=== PATIENT | male | born 1960 | race Two or more races ===

== ENCOUNTER 2021-02-06 09:28 | Inpatient (IN) | payer MEDICAID, OTHER ==
[~2021-02-06] VITALS: Ht 193 cm; Wt 132.7 kg
[2021-02-06] VITALS (34 sets, daily range): BP systolic 80–112; BP diastolic 31–74
[2021-02-06] MEDS ORDERED: DEXTROSE (50%) 50ML SYRG IV PRN ×2 (10:00→11:00)
[2021-02-06] MEDS ORDERED: InsuLIN R (HUMAN) 100 UNITS in SODIUM CHL 0.9% 99 ML IV SCH ×4 (10:00→20:15)
[2021-02-06] MEDS ORDERED: INSULIN LANTUS (GLARGINE) 1 /0.01ml (100units/ml) SC ONE (10:00)
[2021-02-06] MEDS: SODIUM CHLORIDE 0.9% 1,000 ML IV SCH ×4 (10:00→22:40)
[2021-02-06 10:18] LABS: Basophils # (auto) 0 10 ^3/uL (0-0.2); Basophils % (auto) 0.2 % (0.0-2.0); Eosinophils # (auto) 0 10 ^3/uL (0-0.8); Lymphocytes # (auto) 0.5 10 ^3/uL (0.4-5.4)
[2021-02-06 10:20] LABS: Hematocrit 50.3 % (41.0-53.0); Hemoglobin 14.7 g/dL (13.5-17.5); Lymphocytes % (auto) 3.6 % (10.0-50.0); Mean Corpuscular Hemoglobin 31.1 pg (28.0-32.0); Mean Corpuscular Hgb Conc. 29.1 g/dL (32.0-36.0); Mean Corpuscular Volume 106.8 fL (80.0-100.0); Monocytes # (auto) 0.9 10 ^3/uL (0-1.3); Monocytes % (auto) 6.2 % (0.0-12.0); Neutrophils # (auto) 12.4 10 ^3/uL (1.6-8.6); Platelet Count (auto) 278 10^3/uL (140-450); Red Blood Cells 4.71 10^6/uL (4.5-5.90); Red Cell Distribution Width 16.3 % (11.8-14.3); White Blood Cell 13.8 10^3/uL (4.4-10.8)
[2021-02-06] MEDS: ACCU-CHEK COMFORT CURVE STRIP VI SCH ×8 (10:30→23:00)
[2021-02-06] MEDS ORDERED: MIDAZOLAM HCL 5 MG/ML-1ML VIAL ONE (10:34)
[2021-02-06] MEDS ORDERED: ETOMIDATE (2MG/ML) 20ML VIAL IV ONE ×2 (10:34→10:45)
[2021-02-06] MEDS ORDERED: SUCCINYLCHOLINE CHLORIDE 20 MG/ML 10ML VIAL IV ONE ×2 (10:34→10:45)
[2021-02-06 10:36] LABS: Albumin 3.7 g/dL (3.4-5.0); Anion Gap 29 (5-15); Blood Urea Nitrogen 79 mg/dL (7-18); Calcium 9.3 mg/dL (8.5-10.1); Chloride 83 mmol/L (98-107); Sodium 121 mmol/L (136-145)
[2021-02-06] MEDS ORDERED: MIDAZOLAM DRIP 50 mg/50mL 50 ML IV ONE (10:36)
[2021-02-06 10:42] LABS: Urine Bacteria NONE SEEN /hpf (None Seen); Urine Blood 2+ /uL (Negative); Urine Specific Gravity 1.025 (1.001-1.035); Urine WBC 1 /hpf (0 - 3)
[2021-02-06 10:44] LABS: Alanine Aminotransferase 37 U/L (16-61); Alkaline Phosphatase 197 U/L (45-117); Aspartate Aminotransferase 32 U/L (15-37); BUN/Creatinine Ratio 15.4; Bilirubin, Total 0.5 mg/dL (0.2-1.0); GFR African American 15 mL/min; GFR Non-African American 12 mL/min; Total Protein 8.2 g/dL (6.4-8.2)
[2021-02-06] MEDS ORDERED: PIPERACILLIN-TAZOB 3.375GM 100 ML IV ONE (10:45)
[2021-02-06] MEDS ORDERED: SODIUM BICARB 50ML SYR 150 ML in SODIUM CHLORIDE 0.9% 1,000 ML IV ONE (10:45)
[2021-02-06 10:46] LABS: Carbon Dioxide 9 mmol/L (21-32); Glucose 1827 mg/dL (74-106); Magnesium 4.4 mg/dL (1.6-2.6); Potassium 7.5 mmol/L (3.5-5.1)
[2021-02-06] MEDS ORDERED: SODIUM ZIRCONIUM CYCL 10 GM PAK PO ONE ×2 (11:00→12:15)
[2021-02-06] MEDS ORDERED: InsuLIN REG 1unit/0.01ml Soln (100units/ml) IV ONE (11:00)
[2021-02-06] MEDS ORDERED: FUROSEMIDE 20 MG/2 ML VIAL IV ONE ×2 (11:00→12:15)
[2021-02-06] MEDS ORDERED: CALCIUM GLUC 1,000mg/50ml-NS 50 ML IV ONE (11:00)
[2021-02-06] MEDS ORDERED: fentaNYL Drip 2500mCg/250mlNS 250 ML IV ONE (11:01)
[2021-02-06 11:14] LABS: Alcohol, Urine < 3.0 mg/dL (0-10); Amphetamine Screen, Urine NEGATIVE (NEGATIVE); Barbiturate Scree,Urine NEGATIVE (NEGATIVE); Benzodiazephine Screen, Urine NEGATIVE (NEGATIVE); Cannabinoid Screen, Urine NEGATIVE (NEGATIVE); Cocaine Screen, Urine NEGATIVE (NEGATIVE); Opiate Scree,Urine NEGATIVE (NEGATIVE); Phencyclidine Screen, Urine NEGATIVE (NEGATIVE)
[2021-02-06] MEDS ORDERED: NOREPINEPHRINE 8 MG/250ML KIT 250 ML IV ONE (11:19)
[2021-02-06] MEDS ORDERED: MIDAZOLAM HCL 5 MG/ML-1ML VIAL IV ONE (12:30)
[2021-02-06] MEDS: fentaNYL Drip 2500mCg/250mlNS 250 ML IV SCH (12:42)
[2021-02-06] MEDS: NOREPINEPHRINE 8 MG/250ML KIT 250 ML IV SCH ×2 (12:45→22:10)
[2021-02-06] MEDS: MIDAZOLAM DRIP 50 mg/50mL 50 ML IV SCH ×3 (12:46→23:31)
[2021-02-06] MEDS ORDERED: SODIUM CHLORIDE 0.9% 1,000 ML IV SCH (14:00)
[2021-02-06] MEDS ORDERED: NITROGLYCERIN 0.4 MG SL TAB SL PRN (14:15)
[2021-02-06] MEDS ORDERED: MORPHINE SULF INJ 2 MG/ML SYRINGE 1ML IV PRN (14:15)
[2021-02-06] MEDS: SODIUM BICARB 50ML SYR 100 ML in SOD CHL 0.45% 1,000 ML IV SCH ×2 (15:23→21:38)
[2021-02-06 15:44] LABS: BUN/Creatinine Ratio 14.6; Calcium 8.5 mg/dL (8.5-10.1)
[2021-02-06 15:48] LABS: Potassium 5.6 mmol/L (3.5-5.1)
[2021-02-06] MEDS ORDERED: FAMO-12 PO (17:41)
[2021-02-06] MEDS ORDERED: METF-869 PO (17:41)
[2021-02-06] MEDS ORDERED: ATOR20TA50 PO (17:41)
[2021-02-06] MEDS ORDERED: FIN5T PO (17:41)
[2021-02-06] MEDS ORDERED: LISI40TA11 PO (17:41)
[2021-02-06] MEDS ORDERED: AMLO-489 PO (17:41)
[2021-02-06] MEDS ORDERED: ASPI-325 PO (17:41)
[2021-02-06] MEDS: ALBUTEROL SULF 2.5 MG/0.5ML(0.5%) NEB SOLN NEB SCH (18:15)
[2021-02-06] MEDS: InsuLIN R (HUMAN) 100 UNITS in SODIUM CHL 0.9% 99 ML IV SCH (18:15)
[2021-02-06] MEDS: PHENYLEPHRINE IV 250 ML IV SCH ×2 (18:50→23:24)
[2021-02-06] MEDS ORDERED: PHENYLEPHRINE IV 250 ML IV ONE (18:53)
[2021-02-06 19:00] LABS: BUN/Creatinine Ratio 14.1; Calcium 8.7 mg/dL (8.5-10.1); Potassium 5.4 mmol/L (3.5-5.1)
[2021-02-06] MEDS: VASOPRESSIN 50 UNITS in D5W 5% 247.5 ML IV SCH (19:00)
[2021-02-06] MEDS: ACETAMINOPHEN 325 MG TAB PO PRN (20:15)
[2021-02-06] MEDS: PIPERACILLIN-TAZOB 2.25GM 50 ML IV SCH (20:53)
[2021-02-06] MEDS ORDERED: InsuLIN REG 1unit/0.01ml Soln (100units/ml) SC ONE ×2 (21:45→22:00)
[2021-02-06 23:05] LABS: BUN/Creatinine Ratio 13.4; Calcium 9.1 mg/dL (8.5-10.1); Potassium 4.2 mmol/L (3.5-5.1)
[2021-02-06] MEDS: LINEZOLID 600MG/300ML 300 ML IV SCH (23:14)
[2021-02-07] VITALS (102 sets, daily range): BP systolic 87–149; BP diastolic 52–88
[2021-02-07] MEDS: ACCU-CHEK COMFORT CURVE STRIP VI SCH ×12 (00:30→20:07)
[2021-02-07 00:49] LABS: BUN/Creatinine Ratio 12.7; Calcium 9.2 mg/dL (8.5-10.1)
[2021-02-07] MEDS: ALBUTEROL SULF 2.5 MG/0.5ML(0.5%) NEB SOLN NEB SCH ×4 (00:59→18:19)
[2021-02-07] MEDS: PHENYLEPHRINE IV 250 ML IV SCH ×4 (02:06→20:00)
[2021-02-07] MEDS: fentaNYL Drip 2500mCg/250mlNS 250 ML IV SCH ×3 (02:07→16:00)
[2021-02-07] MEDS ORDERED: InsuLIN R (HUMAN) 100 UNITS in SODIUM CHL 0.9% 99 ML IV SCH (03:30)
[2021-02-07] MEDS: PIPERACILLIN-TAZOB 2.25GM 50 ML IV SCH ×3 (03:47→20:07)
[2021-02-07 04:11] LABS: Basophils # (auto) 0.1 10 ^3/uL (0-0.2); Basophils % (auto) 0.6 % (0.0-2.0); Eosinophils # (auto) 0.1 10 ^3/uL (0-0.8); Eosinophils % (auto) 0.4 % (0.0-7.0); Hemoglobin 14.3 g/dL (13.5-17.5); Lymphocytes # (auto) 1.8 10 ^3/uL (0.4-5.4); Lymphocytes % (auto) 12.7 % (10.0-50.0); Mean Corpuscular Hemoglobin 30.2 pg (28.0-32.0); Mean Corpuscular Hgb Conc. 33.3 g/dL (32.0-36.0); Mean Corpuscular Volume 90.6 fL (80.0-100.0); Monocytes # (auto) 1.7 10 ^3/uL (0-1.3); Monocytes % (auto) 12.4 % (0.0-12.0); Neutrophils # (auto) 10.3 10 ^3/uL (1.6-8.6); Neutrophils % (auto) 73.9 % (37.0-80.0); Nucleated Red Blood Cells % 0.1 %; Platelet Count (auto) 217 10^3/uL (140-450); Red Blood Cells 4.74 10^6/uL (4.5-5.90); Red Cell Distribution Width 14.3 % (11.8-14.3)
[2021-02-07 04:25] LABS: Calcium 8.9 mg/dL (8.5-10.1); Potassium 3.8 mmol/L (3.5-5.1)
[2021-02-07 04:32] LABS: BUN/Creatinine Ratio 12.9
[2021-02-07] MEDS: SODIUM CHLORIDE 0.9% 1,000 ML IV SCH (05:20)
[2021-02-07] MEDS ORDERED: SODIUM BICARBONATE 8.4 % INJ 50ML VIAL IV ONE (05:45)
[2021-02-07] MEDS: SODIUM BICARB 50ML SYR 100 ML in SOD CHL 0.45% 1,000 ML IV SCH (06:01)
[2021-02-07] MEDS ORDERED: SODIUM BICARBONATE 50ML VIAL 100 ML in D5W/SOD CHL 0.45% 1,000 ML IV SCH (08:15)
[2021-02-07] MEDS: InsuLIN R (HUMAN) 100 UNITS in SODIUM CHL 0.9% 99 ML IV SCH (08:30)
[2021-02-07] MEDS: MIDAZOLAM DRIP 50 mg/50mL 50 ML IV SCH ×4 (08:30→23:46)
[2021-02-07 08:33] LABS: BUN/Creatinine Ratio 14.1; Calcium 8.4 mg/dL (8.5-10.1); Potassium 3.8 mmol/L (3.5-5.1)
[2021-02-07] MEDS ORDERED: SOD CHL 0.45% 1,000 ML IV SCH (09:00)
[2021-02-07] MEDS: D5W/SOD CHL 0.45% 1,000 ML IV SCH ×2 (09:40→15:40)
[2021-02-07] MEDS ORDERED: ENOXAPARIN SOD 30 MG/0.3 ML SYRINGE SC SCH (10:00)
[2021-02-07] MEDS ORDERED: INSULIN LANTUS (GLARGINE) 1 /0.01ml (100units/ml) SC SCH (10:00)
[2021-02-07] MEDS: PANTOPRAZOLE 40 MG/10 ML VIAL INJ IV SCH (10:19)
[2021-02-07] MEDS: LINEZOLID 600MG/300ML 300 ML IV SCH ×2 (10:20→22:54)
[2021-02-07] MEDS: ENOXAPARIN SOD 40 MG/0.4 ML SYRINGE SC SCH (10:20)
[2021-02-07] MEDS: NOREPINEPHRINE 8 MG/250ML KIT 250 ML IV SCH ×2 (10:40→15:15)
[2021-02-07 11:00] LABS: Protein, Urine 316.3 mg/dL (0.0-11.9)
[2021-02-07] MEDS: InsuLIN REG 1unit/0.01ml Soln (100units/ml) SC SCH ×3 (12:17→20:08)
[2021-02-07 17:01] LABS: Calcium 7.3 mg/dL (8.5-10.1); Potassium 4.2 mmol/L (3.5-5.1)
[2021-02-07 17:10] LABS: BUN/Creatinine Ratio 14.9
[2021-02-07] MEDS: ACETAMINOPHEN 325 MG TAB PO PRN (17:30)
[2021-02-07] MEDS: SOD CHL 0.45% 1,000 ML IV SCH (17:30)
[2021-02-07] MEDS: VASOPRESSIN 50 UNITS in D5W 5% 247.5 ML IV SCH (18:40)
[2021-02-07] MEDS: INSULIN LANTUS (GLARGINE) 1 /0.01ml (100units/ml) SC SCH (21:17)
[2021-02-08] VITALS (103 sets, daily range): BP systolic 92–131; BP diastolic 57–79
[2021-02-08] MEDS: ALBUTEROL SULF 2.5 MG/0.5ML(0.5%) NEB SOLN NEB SCH ×4 (00:15→18:14)
[2021-02-08] MEDS: InsuLIN REG 1unit/0.01ml Soln (100units/ml) SC SCH ×7 (00:16→23:57)
[2021-02-08] MEDS: ACCU-CHEK COMFORT CURVE STRIP VI SCH ×7 (00:16→23:57)
[2021-02-08] MEDS: SOD CHL 0.45% 1,000 ML IV SCH ×4 (01:25→22:09)
[2021-02-08 03:42] LABS: Basophils # (auto) 0 10 ^3/uL (0-0.2); Basophils % (auto) 0.3 % (0.0-2.0); Eosinophils # (auto) 0.1 10 ^3/uL (0-0.8); Eosinophils % (auto) 1.1 % (0.0-7.0); Hematocrit 34.2 % (41.0-53.0); Hemoglobin 11.5 g/dL (13.5-17.5); Lymphocytes # (auto) 1.2 10 ^3/uL (0.4-5.4); Lymphocytes % (auto) 13.6 % (10.0-50.0); Mean Corpuscular Hemoglobin 30.8 pg (28.0-32.0); Mean Corpuscular Hgb Conc. 33.6 g/dL (32.0-36.0); Mean Corpuscular Volume 91.5 fL (80.0-100.0); Monocytes # (auto) 0.9 10 ^3/uL (0-1.3); Monocytes % (auto) 10.3 % (0.0-12.0); Neutrophils # (auto) 6.4 10 ^3/uL (1.6-8.6); Neutrophils % (auto) 74.7 % (37.0-80.0); Nucleated Red Blood Cells % 0.1 %; Platelet Count (auto) 115 10^3/uL (140-450); Red Blood Cells 3.74 10^6/uL (4.5-5.90); Red Cell Distribution Width 14.6 % (11.8-14.3); White Blood Cell 8.6 10^3/uL (4.4-10.8)
[2021-02-08 03:51] LABS: INR 1.06 (0.9-1.15); Partial Thromboplastin Time 24.1 sec (23.0-31.2)
[2021-02-08 03:53] LABS: Calcium 6.9 mg/dL (8.5-10.1); Potassium 3.6 mmol/L (3.5-5.1)
[2021-02-08 03:55] LABS: Albumin 2.3 g/dL (3.4-5.0)
[2021-02-08 03:59] LABS: Bilirubin, Direct 0.2 mg/dL (0-0.2); Bilirubin, Total 0.5 mg/dL (0.2-1.0); Total Protein 5.9 g/dL (6.4-8.2)
[2021-02-08 04:02] LABS: BUN/Creatinine Ratio 14.7
[2021-02-08] MEDS: PHENYLEPHRINE IV 250 ML IV SCH ×3 (04:20→21:00)
[2021-02-08] MEDS: PIPERACILLIN-TAZOB 2.25GM 50 ML IV SCH ×3 (04:52→20:13)
[2021-02-08] MEDS: MIDAZOLAM DRIP 50 mg/50mL 50 ML IV SCH ×2 (04:53→19:57)
[2021-02-08] MEDS: NOREPINEPHRINE 8 MG/250ML KIT 250 ML IV SCH ×3 (04:53→23:58)
[2021-02-08] MEDS ORDERED: DOPamine 1600MCG/ML D5W 250 ML IV SCH (10:00)
[2021-02-08] MEDS: ENOXAPARIN SOD 40 MG/0.4 ML SYRINGE SC SCH (10:26)
[2021-02-08] MEDS: LINEZOLID 600MG/300ML 300 ML IV SCH ×2 (10:26→22:09)
[2021-02-08] MEDS: PANTOPRAZOLE 40 MG/10 ML VIAL INJ IV SCH (10:26)
[2021-02-08] MEDS: INSULIN LANTUS (GLARGINE) 1 /0.01ml (100units/ml) SC SCH ×2 (10:27→22:10)
[2021-02-08 15:09] LABS: BUN/Creatinine Ratio 13.5; Potassium 3.3 mmol/L (3.5-5.1)
[2021-02-08] MEDS: DOPAMINE HCL IV SCH (16:22)
[2021-02-08] MEDS: SODIUM CHL 0.9% IV SCH (16:22)
[2021-02-08] MEDS: VASOPRESSIN 50 UNITS in D5W 5% 247.5 ML IV SCH (16:36)
[2021-02-08] MEDS: fentaNYL Drip 2500mCg/250mlNS 250 ML IV SCH (19:56)
[2021-02-09] VITALS (102 sets, daily range): BP systolic 92–123; BP diastolic 61–79
[2021-02-09] MEDS: ALBUTEROL SULF 2.5 MG/0.5ML(0.5%) NEB SOLN NEB SCH ×4 (00:12→18:30)
[2021-02-09] MEDS: MIDAZOLAM DRIP 50 mg/50mL 50 ML IV SCH (01:13)
[2021-02-09 03:54] LABS: Basophils # (auto) 0 10 ^3/uL (0-0.2); Basophils % (auto) 0.4 % (0.0-2.0); Eosinophils # (auto) 0.2 10 ^3/uL (0-0.8); Eosinophils % (auto) 1.7 % (0.0-7.0); Hematocrit 34.9 % (41.0-53.0); Hemoglobin 11.9 g/dL (13.5-17.5); Lymphocytes # (auto) 1.4 10 ^3/uL (0.4-5.4); Lymphocytes % (auto) 13.9 % (10.0-50.0); Mean Corpuscular Hemoglobin 31.2 pg (28.0-32.0); Mean Corpuscular Hgb Conc. 34.1 g/dL (32.0-36.0); Mean Corpuscular Volume 91.5 fL (80.0-100.0); Monocytes # (auto) 1.1 10 ^3/uL (0-1.3); Monocytes % (auto) 11.1 % (0.0-12.0); Neutrophils # (auto) 7.1 10 ^3/uL (1.6-8.6); Neutrophils % (auto) 72.9 % (37.0-80.0); Nucleated Red Blood Cells % 0.1 %; Platelet Count (auto) 107 10^3/uL (140-450); Red Blood Cells 3.81 10^6/uL (4.5-5.90); Red Cell Distribution Width 14.3 % (11.8-14.3); White Blood Cell 9.8 10^3/uL (4.4-10.8)
[2021-02-09] MEDS: SOD CHL 0.45% 1,000 ML IV SCH ×3 (04:05→17:50)
[2021-02-09] MEDS: PIPERACILLIN-TAZOB 2.25GM 50 ML IV SCH ×3 (04:07→20:35)
[2021-02-09] MEDS: InsuLIN REG 1unit/0.01ml Soln (100units/ml) SC SCH ×5 (04:08→20:37)
[2021-02-09 04:09] LABS: Potassium 3.6 mmol/L (3.5-5.1)
[2021-02-09] MEDS: ACCU-CHEK COMFORT CURVE STRIP VI SCH ×6 (04:09→23:57)
[2021-02-09 04:14] LABS: BUN/Creatinine Ratio 14.1; Calcium 7.5 mg/dL (8.5-10.1)
[2021-02-09] MEDS: PHENYLEPHRINE IV 250 ML IV SCH ×3 (05:20→22:00)
[2021-02-09] MEDS: PANTOPRAZOLE 40 MG/10 ML VIAL INJ IV SCH (10:36)
[2021-02-09] MEDS: LINEZOLID 600MG/300ML 300 ML IV SCH ×2 (10:36→22:26)
[2021-02-09] MEDS: INSULIN LANTUS (GLARGINE) 1 /0.01ml (100units/ml) SC SCH ×2 (10:37→22:31)
[2021-02-09] MEDS: ENOXAPARIN SOD 40 MG/0.4 ML SYRINGE SC SCH (10:37)
[2021-02-09] MEDS: SODIUM CHL 0.9% IV SCH (15:30)
[2021-02-09] MEDS: DOPAMINE HCL IV SCH (15:30)
[2021-02-09] MEDS: VASOPRESSIN 50 UNITS in D5W 5% 247.5 ML IV SCH (18:43)
[2021-02-10] VITALS (102 sets, daily range): BP systolic 102–155; BP diastolic 63–96
[2021-02-10] MEDS: InsuLIN REG 1unit/0.01ml Soln (100units/ml) SC SCH ×6 (00:02→20:32)
[2021-02-10] MEDS: SOD CHL 0.45% 1,000 ML IV SCH ×4 (00:12→19:39)
[2021-02-10] MEDS: ALBUTEROL SULF 2.5 MG/0.5ML(0.5%) NEB SOLN NEB SCH ×4 (00:33→18:29)
[2021-02-10] MEDS: ACCU-CHEK COMFORT CURVE STRIP VI SCH ×5 (04:21→20:12)
[2021-02-10] MEDS: PIPERACILLIN-TAZOB 2.25GM 50 ML IV SCH ×3 (04:21→20:11)
[2021-02-10 04:45] LABS: Basophils # (auto) 0 10 ^3/uL (0-0.2); Basophils % (auto) 0.2 % (0.0-2.0); Eosinophils # (auto) 0.2 10 ^3/uL (0-0.8); Eosinophils % (auto) 2.1 % (0.0-7.0); Hematocrit 33.9 % (41.0-53.0); Hemoglobin 11.3 g/dL (13.5-17.5); Lymphocytes # (auto) 1.3 10 ^3/uL (0.4-5.4); Lymphocytes % (auto) 14.6 % (10.0-50.0); Mean Corpuscular Hemoglobin 30.5 pg (28.0-32.0); Mean Corpuscular Hgb Conc. 33.3 g/dL (32.0-36.0); Mean Corpuscular Volume 91.8 fL (80.0-100.0); Monocytes % (auto) 11.1 % (0.0-12.0); Neutrophils # (auto) 6.5 10 ^3/uL (1.6-8.6); Nucleated Red Blood Cells % 0.1 %; Platelet Count (auto) 103 10^3/uL (140-450); Red Blood Cells 3.69 10^6/uL (4.5-5.90); Red Cell Distribution Width 14.4 % (11.8-14.3)
[2021-02-10 04:57] LABS: INR 0.97 (0.9-1.15); Partial Thromboplastin Time 23.6 sec (23.0-31.2)
[2021-02-10 05:00] LABS: Albumin 2.2 g/dL (3.4-5.0); Bilirubin, Direct 0.2 mg/dL (0-0.2); Magnesium 2.8 mg/dL (1.6-2.6); Potassium 3.6 mmol/L (3.5-5.1)
[2021-02-10 05:03] LABS: BUN/Creatinine Ratio 14.8; Bilirubin, Total 0.4 mg/dL (0.2-1.0); Total Protein 6.6 g/dL (6.4-8.2)
[2021-02-10] MEDS: PHENYLEPHRINE IV 250 ML IV SCH ×3 (06:20→23:00)
[2021-02-10] MEDS: PANTOPRAZOLE 40 MG/10 ML VIAL INJ IV SCH (09:59)
[2021-02-10] MEDS: LINEZOLID 600MG/300ML 300 ML IV SCH ×2 (10:00→22:25)
[2021-02-10] MEDS: ENOXAPARIN SOD 40 MG/0.4 ML SYRINGE SC SCH (10:00)
[2021-02-10] MEDS: INSULIN LANTUS (GLARGINE) 1 /0.01ml (100units/ml) SC SCH ×2 (10:02→22:16)
[2021-02-10] MEDS: fentaNYL Drip 2500mCg/250mlNS 250 ML IV SCH (12:30)
[2021-02-10] MEDS: MIDAZOLAM DRIP 50 mg/50mL 50 ML IV SCH (12:30)
[2021-02-10] MEDS: SODIUM CHL 0.9% IV SCH (15:30)
[2021-02-10] MEDS: DOPAMINE HCL IV SCH (15:30)
[2021-02-10] MEDS: NOREPINEPHRINE 8 MG/250ML KIT 250 ML IV SCH (15:30)
[2021-02-10] MEDS: VASOPRESSIN 50 UNITS in D5W 5% 247.5 ML IV SCH (17:07)
[2021-02-11] VITALS (105 sets, daily range): BP systolic 101–155; BP diastolic 52–97
[2021-02-11] MEDS: ACCU-CHEK COMFORT CURVE STRIP VI SCH ×7 (00:22→23:57)
[2021-02-11] MEDS: InsuLIN REG 1unit/0.01ml Soln (100units/ml) SC SCH ×7 (00:26→23:58)
[2021-02-11] MEDS: ALBUTEROL SULF 2.5 MG/0.5ML(0.5%) NEB SOLN NEB SCH ×4 (00:28→18:24)
[2021-02-11] MEDS: PIPERACILLIN-TAZOB 2.25GM 50 ML IV SCH ×3 (05:03→20:39)
[2021-02-11] MEDS: SOD CHL 0.45% 1,000 ML IV SCH ×3 (05:04→13:07)
[2021-02-11] MEDS ORDERED: SODIUM CHLORIDE 0.9 % NEB SOLN 3ML NEB ONE (05:50)
[2021-02-11 05:51] LABS: Basophils # (auto) 0 10 ^3/uL (0-0.2); Basophils % (auto) 0.3 % (0.0-2.0); Eosinophils # (auto) 0.1 10 ^3/uL (0-0.8); Eosinophils % (auto) 1.7 % (0.0-7.0); Hematocrit 31.2 % (41.0-53.0); Hemoglobin 10.7 g/dL (13.5-17.5); Lymphocytes # (auto) 1.4 10 ^3/uL (0.4-5.4); Lymphocytes % (auto) 18.8 % (10.0-50.0); Mean Corpuscular Hemoglobin 31.8 pg (28.0-32.0); Mean Corpuscular Hgb Conc. 34.4 g/dL (32.0-36.0); Mean Corpuscular Volume 92.4 fL (80.0-100.0); Monocytes % (auto) 13.6 % (0.0-12.0); Neutrophils # (auto) 4.8 10 ^3/uL (1.6-8.6); Neutrophils % (auto) 65.6 % (37.0-80.0); Nucleated Red Blood Cells % 0.1 %; Platelet Count (auto) 98 10^3/uL (140-450); Red Blood Cells 3.37 10^6/uL (4.5-5.90); Red Cell Distribution Width 14.7 % (11.8-14.3); White Blood Cell 7.3 10^3/uL (4.4-10.8)
[2021-02-11 06:06] LABS: INR 0.97 (0.9-1.15); Partial Thromboplastin Time 24.2 sec (23.0-31.2)
[2021-02-11 06:15] LABS: Potassium 3.9 mmol/L (3.5-5.1)
[2021-02-11 06:23] LABS: Albumin 2.1 g/dL (3.4-5.0); BUN/Creatinine Ratio 16.5; Bilirubin, Direct 0.1 mg/dL (0-0.2); Bilirubin, Total 0.4 mg/dL (0.2-1.0); Calcium 8.2 mg/dL (8.5-10.1); Magnesium 2.7 mg/dL (1.6-2.6); Total Protein 6.6 g/dL (6.4-8.2)
[2021-02-11] MEDS: PHENYLEPHRINE IV 250 ML IV SCH ×2 (07:20→15:40)
[2021-02-11] MEDS: PANTOPRAZOLE 40 MG/10 ML VIAL INJ IV SCH (10:34)
[2021-02-11] MEDS: LINEZOLID 600MG/300ML 300 ML IV SCH ×2 (10:35→22:26)
[2021-02-11] MEDS: ENOXAPARIN SOD 40 MG/0.4 ML SYRINGE SC SCH (10:35)
[2021-02-11] MEDS: INSULIN LANTUS (GLARGINE) 1 /0.01ml (100units/ml) SC SCH ×2 (10:38→22:20)
[2021-02-11] MEDS: MIDAZOLAM DRIP 50 mg/50mL 50 ML IV SCH (12:30)
[2021-02-11] MEDS: fentaNYL Drip 2500mCg/250mlNS 250 ML IV SCH (12:30)
[2021-02-11] MEDS: NOREPINEPHRINE 8 MG/250ML KIT 250 ML IV SCH (13:07)
[2021-02-11] MEDS ORDERED: Glucerna 1.2 Cal 1Liter BOTTLE GT SCH (18:15)
[2021-02-11] MEDS: VASOPRESSIN 50 UNITS in D5W 5% 247.5 ML IV SCH (19:00)
[2021-02-12] VITALS (85 sets, daily range): BP systolic 97–167; BP diastolic 51–102
[2021-02-12] MEDS: ALBUTEROL SULF 2.5 MG/0.5ML(0.5%) NEB SOLN NEB SCH ×4 (00:07→18:14)
[2021-02-12] MEDS: SOD CHL 0.45% 1,000 ML IV SCH ×4 (01:27→18:53)
[2021-02-12] MEDS: ACCU-CHEK COMFORT CURVE STRIP VI SCH ×6 (03:26→23:48)
[2021-02-12] MEDS: InsuLIN REG 1unit/0.01ml Soln (100units/ml) SC SCH ×6 (03:32→23:49)
[2021-02-12] MEDS: PIPERACILLIN-TAZOB 2.25GM 50 ML IV SCH ×3 (03:35→19:52)
[2021-02-12 03:48] LABS: Basophils # (auto) 0 10 ^3/uL (0-0.2); Basophils % (auto) 0.3 % (0.0-2.0); Eosinophils # (auto) 0.1 10 ^3/uL (0-0.8); Eosinophils % (auto) 1.8 % (0.0-7.0); Hematocrit 30.7 % (41.0-53.0); Hemoglobin 10.2 g/dL (13.5-17.5); Lymphocytes # (auto) 1.1 10 ^3/uL (0.4-5.4); Lymphocytes % (auto) 17.6 % (10.0-50.0); Mean Corpuscular Hemoglobin 30.9 pg (28.0-32.0); Mean Corpuscular Hgb Conc. 33.1 g/dL (32.0-36.0); Mean Corpuscular Volume 93.3 fL (80.0-100.0); Monocytes # (auto) 0.9 10 ^3/uL (0-1.3); Monocytes % (auto) 15.2 % (0.0-12.0); Neutrophils % (auto) 65.1 % (37.0-80.0); Nucleated Red Blood Cells % 0.1 %; Platelet Count (auto) 114 10^3/uL (140-450); Red Blood Cells 3.29 10^6/uL (4.5-5.90); Red Cell Distribution Width 14.5 % (11.8-14.3); White Blood Cell 6.2 10^3/uL (4.4-10.8)
[2021-02-12 04:09] LABS: BUN/Creatinine Ratio 15.6; Calcium 8.5 mg/dL (8.5-10.1); Potassium 3.8 mmol/L (3.5-5.1)
[2021-02-12] MEDS: PHENYLEPHRINE IV 250 ML IV SCH ×3 (08:20→16:40)
[2021-02-12] MEDS: PANTOPRAZOLE 40 MG/10 ML VIAL INJ IV SCH (10:28)
[2021-02-12] MEDS: LINEZOLID 600MG/300ML 300 ML IV SCH ×2 (10:28→22:07)
[2021-02-12] MEDS: INSULIN LANTUS (GLARGINE) 1 /0.01ml (100units/ml) SC SCH ×2 (10:29→22:05)
[2021-02-12] MEDS: ENOXAPARIN SOD 40 MG/0.4 ML SYRINGE SC SCH (10:29)
[2021-02-12] MEDS ORDERED: INSULIN LANTUS (GLARGINE) 1 /0.01ml (100units/ml) SC ONE (11:30)
[2021-02-12] MEDS: fentaNYL Drip 2500mCg/250mlNS 250 ML IV SCH (12:30)
[2021-02-12] MEDS: MIDAZOLAM DRIP 50 mg/50mL 50 ML IV SCH (12:30)
[2021-02-12] MEDS: NOREPINEPHRINE 8 MG/250ML KIT 250 ML IV SCH (15:30)
[2021-02-12] MEDS: VASOPRESSIN 50 UNITS in D5W 5% 247.5 ML IV SCH (19:00)
[2021-02-13] VITALS (28 sets, daily range): BP systolic 97–139; BP diastolic 45–84
[2021-02-13] MEDS: ALBUTEROL SULF 2.5 MG/0.5ML(0.5%) NEB SOLN NEB SCH ×4 (00:10→19:14)
[2021-02-13] MEDS: PHENYLEPHRINE IV 250 ML IV SCH (01:00)
[2021-02-13] MEDS: SOD CHL 0.45% 1,000 ML IV SCH ×4 (02:39→23:03)
[2021-02-13] MEDS: ACCU-CHEK COMFORT CURVE STRIP VI SCH ×6 (04:03→22:47)
[2021-02-13] MEDS: PIPERACILLIN-TAZOB 2.25GM 50 ML IV SCH ×3 (04:03→20:27)
[2021-02-13] MEDS: InsuLIN REG 1unit/0.01ml Soln (100units/ml) SC SCH ×6 (04:05→22:59)
[2021-02-13 04:43] LABS: Basophils # (auto) 0 10 ^3/uL (0-0.2); Basophils % (auto) 0.5 % (0.0-2.0); Eosinophils # (auto) 0.1 10 ^3/uL (0-0.8); Eosinophils % (auto) 1.6 % (0.0-7.0); Hematocrit 30.8 % (41.0-53.0); Hemoglobin 10.2 g/dL (13.5-17.5); Lymphocytes # (auto) 1.2 10 ^3/uL (0.4-5.4); Lymphocytes % (auto) 18.6 % (10.0-50.0); Mean Corpuscular Hemoglobin 31.7 pg (28.0-32.0); Mean Corpuscular Hgb Conc. 33.1 g/dL (32.0-36.0); Mean Corpuscular Volume 95.7 fL (80.0-100.0); Monocytes % (auto) 15.6 % (0.0-12.0); Neutrophils # (auto) 4.2 10 ^3/uL (1.6-8.6); Neutrophils % (auto) 63.7 % (37.0-80.0); Nucleated Red Blood Cells % 0.1 %; Platelet Count (auto) 133 10^3/uL (140-450); Red Blood Cells 3.22 10^6/uL (4.5-5.90); White Blood Cell 6.7 10^3/uL (4.4-10.8)
[2021-02-13 05:05] LABS: Calcium 8.7 mg/dL (8.5-10.1); Potassium 3.3 mmol/L (3.5-5.1)
[2021-02-13 05:08] LABS: BUN/Creatinine Ratio 17.1
[2021-02-13] MEDS: PANTOPRAZOLE 40 MG/10 ML VIAL INJ IV SCH (10:25)
[2021-02-13] MEDS: ENOXAPARIN SOD 40 MG/0.4 ML SYRINGE SC SCH (10:25)
[2021-02-13] MEDS: INSULIN LANTUS (GLARGINE) 1 /0.01ml (100units/ml) SC SCH ×2 (10:26→22:59)
[2021-02-13] MEDS: LINEZOLID 600MG/300ML 300 ML IV SCH ×2 (10:27→22:36)
[2021-02-13] MEDS: ACETAMINOPHEN 325 MG TAB PO PRN (10:45)
[2021-02-13] MEDS: FREE WATER GT SCH ×2 (13:00→14:00)
[2021-02-14] MEDS: ALBUTEROL SULF 2.5 MG/0.5ML(0.5%) NEB SOLN NEB SCH ×4 (00:27→18:18)
[2021-02-14] MEDS: ACCU-CHEK COMFORT CURVE STRIP VI SCH ×6 (04:00→23:27)
[2021-02-14] MEDS: PIPERACILLIN-TAZOB 2.25GM 50 ML IV SCH ×3 (04:55→21:19)
[2021-02-14 05:00] VITALS: BP 124/74
[2021-02-14] MEDS: InsuLIN REG 1unit/0.01ml Soln (100units/ml) SC SCH ×6 (05:09→23:38)
[2021-02-14] MEDS: INSULIN LANTUS (GLARGINE) 1 /0.01ml (100units/ml) SC SCH ×2 (08:57→21:45)
[2021-02-14] MEDS: PANTOPRAZOLE 40 MG/10 ML VIAL INJ IV SCH (08:59)
[2021-02-14] MEDS: SOD CHL 0.45% 1,000 ML IV SCH ×2 (08:59→18:53)
[2021-02-14 09:00] VITALS: BP 147/82
[2021-02-14] MEDS: LINEZOLID 600MG/300ML 300 ML IV SCH ×2 (09:00→23:27)
[2021-02-14] MEDS: ENOXAPARIN SOD 40 MG/0.4 ML SYRINGE SC SCH (09:00)
[2021-02-14 10:06] LABS: Basophils # (auto) 0 10 ^3/uL (0-0.2); Basophils % (auto) 0.5 % (0.0-2.0); Eosinophils # (auto) 0.1 10 ^3/uL (0-0.8); Hemoglobin 10.6 g/dL (13.5-17.5); Lymphocytes # (auto) 1.6 10 ^3/uL (0.4-5.4); Lymphocytes % (auto) 19.9 % (10.0-50.0); Mean Corpuscular Hemoglobin 31.1 pg (28.0-32.0); Mean Corpuscular Hgb Conc. 33.2 g/dL (32.0-36.0); Mean Corpuscular Volume 93.7 fL (80.0-100.0); Monocytes % (auto) 12.7 % (0.0-12.0); Neutrophils # (auto) 5.3 10 ^3/uL (1.6-8.6); Neutrophils % (auto) 65.9 % (37.0-80.0); Platelet Count (auto) 148 10^3/uL (140-450); Red Blood Cells 3.42 10^6/uL (4.5-5.90); Red Cell Distribution Width 14.2 % (11.8-14.3); White Blood Cell 8.1 10^3/uL (4.4-10.8)
[2021-02-14 10:28] LABS: BUN/Creatinine Ratio 16.4; Calcium 8.2 mg/dL (8.5-10.1)
[2021-02-14 10:32] LABS: Potassium 2.8 mmol/L (3.5-5.1)
[2021-02-14] MEDS ORDERED: POTASSIUM CHL 20 Meq TABLET PO ONE ×2 (11:30→19:30)
[2021-02-14] MEDS: POTASSIUM CHL 20MEQ/100ML 100 ML IV SCH ×2 (12:12→14:04)
[2021-02-14 13:00] VITALS: BP 148/87
[2021-02-14] MEDS ORDERED: POTASSIUM EFFERVESENT TAB 25 MEQ PO ONE (16:15)
[2021-02-14 16:21] LABS: Albumin 2.3 g/dL (3.4-5.0); Calcium 8.5 mg/dL (8.5-10.1)
[2021-02-14 16:25] LABS: BUN/Creatinine Ratio 14.8; Bilirubin, Total 0.3 mg/dL (0.2-1.0)
[2021-02-14 16:37] VITALS: BP 154/105
[2021-02-14 16:59] VITALS: BP 154/105
[2021-02-14 22:00] VITALS: BP 152/80
[2021-02-15] MEDS: ALBUTEROL SULF 2.5 MG/0.5ML(0.5%) NEB SOLN NEB SCH ×3 (00:13→11:51)
[2021-02-15] MEDS: ACCU-CHEK COMFORT CURVE STRIP VI SCH ×3 (03:48→11:45)
[2021-02-15] MEDS: PIPERACILLIN-TAZOB 2.25GM 50 ML IV SCH ×2 (03:48→11:44)
[2021-02-15] MEDS: InsuLIN REG 1unit/0.01ml Soln (100units/ml) SC SCH ×3 (03:56→11:45)
[2021-02-15] MEDS: SOD CHL 0.45% 1,000 ML IV SCH (04:10)
[2021-02-15 05:00] VITALS: BP 158/91
[2021-02-15 05:13] LABS: Basophils # (auto) 0 10 ^3/uL (0-0.2); Basophils % (auto) 0.4 % (0.0-2.0); Eosinophils # (auto) 0.1 10 ^3/uL (0-0.8); Eosinophils % (auto) 1.3 % (0.0-7.0); Hematocrit 30.9 % (41.0-53.0); Hemoglobin 10.5 g/dL (13.5-17.5); Lymphocytes # (auto) 2.3 10 ^3/uL (0.4-5.4); Lymphocytes % (auto) 23.4 % (10.0-50.0); Mean Corpuscular Hemoglobin 30.9 pg (28.0-32.0); Mean Corpuscular Hgb Conc. 33.8 g/dL (32.0-36.0); Mean Corpuscular Volume 91.3 fL (80.0-100.0); Monocytes % (auto) 9.9 % (0.0-12.0); Neutrophils # (auto) 6.3 10 ^3/uL (1.6-8.6); Nucleated Red Blood Cells % 0.1 %; Platelet Count (auto) 184 10^3/uL (140-450); Red Blood Cells 3.39 10^6/uL (4.5-5.90); Red Cell Distribution Width 13.9 % (11.8-14.3); White Blood Cell 9.7 10^3/uL (4.4-10.8)
[2021-02-15 05:32] LABS: Calcium 8.3 mg/dL (8.5-10.1)
[2021-02-15 05:35] LABS: BUN/Creatinine Ratio 14.1
[2021-02-15 09:00] VITALS: BP 146/87
[2021-02-15] MEDS: LINEZOLID 600MG/300ML 300 ML IV SCH (09:17)
[2021-02-15] MEDS: PANTOPRAZOLE 40 MG/10 ML VIAL INJ IV SCH (09:17)
[2021-02-15] MEDS: ENOXAPARIN SOD 40 MG/0.4 ML SYRINGE SC SCH (09:18)
[2021-02-15] MEDS: INSULIN LANTUS (GLARGINE) 1 /0.01ml (100units/ml) SC SCH (09:21)
[2021-02-15 13:00] VITALS: BP 130/74
== END 2021-02-15 14:45 | DRG 720 ==
LOC: EDBD 09:28 → ER 09:28 → PACU ICU 14:04 → ICU WEST 15:35 → CENTRAL 02-13 12:45 → TELE-CENTR 02-13 14:27
PROVIDERS: ADMIT Internal Medicine; ATTEND Internal Medicine
PROC: 5A1955Z Respiratory Ventilation, Greater than 96 Consecutive Hours (ICD-10-PCS; principal; 2021-02-06)
PROC: 0BH17EZ Insertion of Endotracheal Airway into Trachea, Via Natural or Artificial Opening (ICD-10-PCS; 2021-02-06)
PROC: 02HV33Z Insertion of Infusion Device into Superior Vena Cava, Percutaneous Approach (ICD-10-PCS; 2021-02-06)
PROC: 0D9670Z Drainage of Stomach with Drainage Device, Via Natural or Artificial Opening (ICD-10-PCS; 2021-02-06)
DX: A41.9 Sepsis, unspecified organism (principal); J96.01 Acute respiratory failure with hypoxia; E11.11 Type 2 diabetes mellitus with ketoacidosis with coma; N17.0 Acute kidney failure with tubular necrosis; R65.21 Severe sepsis with septic shock; G92 Toxic encephalopathy; J15.212 Pneumonia due to Methicillin resistant Staphylococcus aureus; N18.30 Chronic kidney disease, stage 3 unspecified; Z20.822 Contact with and (suspected) exposure to COVID-19; E87.0 Hyperosmolality and hypernatremia; E87.5 Hyperkalemia; E66.01 Morbid (severe) obesity due to excess calories; E86.0 Dehydration; J98.11 Atelectasis; K21.9 Gastro-esophageal reflux disease without esophagitis; N40.0 Benign prostatic hyperplasia without lower urinary tract symptoms; E11.22 Type 2 diabetes mellitus with diabetic chronic kidney disease; E78.5 Hyperlipidemia, unspecified; Z96.659 Presence of unspecified artificial knee joint; G47.33 Obstructive sleep apnea (adult) (pediatric); I12.9 Hypertensive chronic kidney disease with stage 1 through stage 4 chronic kidney disease, or unspecified chronic kidney disease; Z68.35 Body mass index [BMI] 35.0-35.9, adult; Z79.4 Long term (current) use of insulin; Z82.3 Family history of stroke; Z82.49 Family history of ischemic heart disease and other diseases of the circulatory system; Z83.3 Family history of diabetes mellitus
CPT/HCPCS: 31500; 36415; 36556; 36600; 70450; 71045; 76775; 80048; 80053; 80076; 80307; 81001; 82010; 82570; 82805; 82962; 83036; 83735; 83880; 84156; 84300; 84484; 85025; 85610; 85730; 87040; 87070; 87077; 87081; 87086; 87186; 87205; 87426; 92610; 93005; 94002; 94003; 94640; 96365; 96367; 96375; 97110; 97116; 97163; 97530; 99291; C9113; G0378; J0330; J1265; J1815; J2250; J2543; J3480; J7060

== ENCOUNTER 2021-02-16 14:21 | Inpatient (IN) | payer MEDICAID ==
[~2021-02-16] VITALS: Ht 190.5 cm; Wt 131.2 kg
[~2021-02-16 14:21] MED LIST: ACETYLCYSTEINE ORAL for CIN 20%(200MG/ML) 4ML PO SCH; AMLO-489 PO; ASPI-325 PO; ATOR20TA50 PO; FAMO-12 PO; FIN5T PO; LISI40TA11 PO; METF-869 PO
[2021-02-16] MEDS ORDERED: SODIUM CHLORIDE 0.9% 1,000 ML IV ONE (14:45)
[2021-02-16] MEDS ORDERED: levoFLOXacin 750MG 150 ML IV ONE (15:00)
[2021-02-16 15:10] LABS: Basophils # (auto) 0 10 ^3/uL (0-0.2); Basophils % (auto) 0.2 % (0.0-2.0); Eosinophils # (auto) 0.1 10 ^3/uL (0-0.8); Eosinophils % (auto) 0.8 % (0.0-7.0); Hematocrit 35.8 % (41.0-53.0); Hemoglobin 11.9 g/dL (13.5-17.5); Lymphocytes # (auto) 2.6 10 ^3/uL (0.4-5.4); Lymphocytes % (auto) 19.5 % (10.0-50.0); Mean Corpuscular Hemoglobin 30.4 pg (28.0-32.0); Mean Corpuscular Hgb Conc. 33.2 g/dL (32.0-36.0); Mean Corpuscular Volume 91.6 fL (80.0-100.0); Monocytes # (auto) 0.7 10 ^3/uL (0-1.3); Monocytes % (auto) 5.5 % (0.0-12.0); Neutrophils # (auto) 9.9 10 ^3/uL (1.6-8.6); Nucleated Red Blood Cells % 0.2 %; Platelet Count (auto) 223 10^3/uL (140-450); Red Blood Cells 3.91 10^6/uL (4.5-5.90); White Blood Cell 13.4 10^3/uL (4.4-10.8)
[2021-02-16 15:21] LABS: Albumin 2.6 g/dL (3.4-5.0); BUN/Creatinine Ratio 12.1; Calcium 8.3 mg/dL (8.5-10.1)
[2021-02-16 15:24] LABS: Lactic Acid w/Reflex 2.1 mmol/L (0.4-2.0)
[2021-02-16 15:26] LABS: Bilirubin, Total 0.3 mg/dL (0.2-1.0); Total Protein 7.4 g/dL (6.4-8.2)
[2021-02-16 15:29] LABS: Potassium 2.9 mmol/L (3.5-5.1)
[2021-02-16] MEDS: POTASSIUM CHL 20MEQ/100ML 100 ML IV SCH ×2 (16:15→20:11)
[2021-02-16] MEDS ORDERED: MORPHINE SULF INJ 2 MG/ML SYRINGE 1ML IV PRN (18:15)
[2021-02-16] MEDS ORDERED: HYDROcodone-ACET 5/325MG TAB PO PRN (18:15)
[2021-02-16 18:57] LABS: Urine Bacteria FEW /hpf (None Seen); Urine Blood 1+ /uL (Negative); Urine Hyaline Cast FEW /lpf (0 - 2); Urine Specific Gravity 1.016 (1.001-1.035); Urine WBC 11 /hpf (0 - 3)
[2021-02-16 22:00] VITALS: BP 170/113
[2021-02-16] MEDS: LINEZOLID 600MG/300ML 300 ML IV SCH (22:46)
[2021-02-16] MEDS: ENOXAPARIN SOD 40 MG/0.4 ML SYRINGE SC SCH (22:46)
[2021-02-16] MEDS: hydrALAZINE HCL 20 MG/ML VL IV SCH (23:17)
[2021-02-17] VITALS: BP 156/99
[2021-02-17 04:00] VITALS: BP 155/99
[2021-02-17 05:31] LABS: Basophils # (auto) 0 10 ^3/uL (0-0.2); Basophils % (auto) 0.3 % (0.0-2.0); Eosinophils # (auto) 0.1 10 ^3/uL (0-0.8); Eosinophils % (auto) 0.7 % (0.0-7.0); Hematocrit 39.1 % (41.0-53.0); Hemoglobin 12.6 g/dL (13.5-17.5); Lymphocytes # (auto) 2.2 10 ^3/uL (0.4-5.4); Mean Corpuscular Hemoglobin 31.1 pg (28.0-32.0); Mean Corpuscular Hgb Conc. 32.3 g/dL (32.0-36.0); Mean Corpuscular Volume 96.3 fL (80.0-100.0); Monocytes # (auto) 0.8 10 ^3/uL (0-1.3); Monocytes % (auto) 6.3 % (0.0-12.0); Neutrophils # (auto) 9.8 10 ^3/uL (1.6-8.6); Neutrophils % (auto) 75.7 % (37.0-80.0); Nucleated Red Blood Cells % 0.5 %; Platelet Count (auto) 195 10^3/uL (140-450); Red Blood Cells 4.06 10^6/uL (4.5-5.90); Red Cell Distribution Width 14.7 % (11.8-14.3); White Blood Cell 12.9 10^3/uL (4.4-10.8)
[2021-02-17 05:48] LABS: Lactic Acid w/Reflex 2.6 mmol/L (0.4-2.0)
[2021-02-17 05:57] LABS: Potassium 3.3 mmol/L (3.5-5.1)
[2021-02-17] MEDS: hydrALAZINE HCL 20 MG/ML VL IV SCH (06:00)
[2021-02-17 06:10] LABS: Albumin 2.3 g/dL (3.4-5.0); BUN/Creatinine Ratio 15.2; Bilirubin, Total 0.4 mg/dL (0.2-1.0); Total Protein 7.3 g/dL (6.4-8.2)
[2021-02-17] MEDS ORDERED: hydrALAZINE HCL 20 MG/ML VL IV PRN (06:30)
[2021-02-17 07:50] VITALS: BP 150/90
[2021-02-17] MEDS: LINEZOLID 600MG/300ML 300 ML IV SCH (10:18)
[2021-02-17] MEDS: ENOXAPARIN SOD 40 MG/0.4 ML SYRINGE SC SCH (10:18)
[2021-02-17] MEDS ORDERED: DEXTROSE (50%) 50ML SYRG IV PRN ×2 (10:45→12:05)
[2021-02-17] MEDS ORDERED: POTASSIUM CHL 20 Meq TABLET PO ONE (10:45)
[2021-02-17] MEDS ORDERED: ACCU-CHEK COMFORT CURVE STRIP VI SCH (11:30)
[2021-02-17] MEDS ORDERED: InsuLIN REG 1unit/0.01ml Soln (100units/ml) SC SCH (11:30)
[2021-02-17 11:40] VITALS: BP 157/91
[2021-02-17] MEDS ORDERED: SOD CHL 0.45% 1,000 ML IV SCH (12:00)
[2021-02-17] MEDS: ACCU-CHEK COMFORT CURVE STRIP VI SCH ×3 (12:13→20:00)
[2021-02-17] MEDS: InsuLIN REG 1unit/0.01ml Soln (100units/ml) SC SCH ×3 (12:15→21:19)
[2021-02-17 14:42] LABS: Creatinine, Urine 56 mg/dL (30.0-125.0); Protein, Urine 33.7 mg/dL (0.0-11.9); Sodium Urine 60 mmol/L (40-220)
[2021-02-17] MEDS: ASPirin 81 mg TAB PO SCH (16:05)
[2021-02-17] MEDS: SODIUM BICARBONATE 50ML VIAL 50 ML in SOD CHL 0.45% WITH 20MEQ KCL 1,000 ML IV SCH (16:05)
[2021-02-17] MEDS: METOPROLOL TARTRATE 25 MG TAB PO SCH (16:06)
[2021-02-17 20:00] VITALS: BP 159/105
[2021-02-18] VITALS (12 sets, daily range): BP systolic 132–177; BP diastolic 43–110
[2021-02-18] MEDS: METOPROLOL TARTRATE 25 MG TAB PO SCH ×3 (00:09→21:36)
[2021-02-18] MEDS: ACCU-CHEK COMFORT CURVE STRIP VI SCH ×6 (00:09→20:00)
[2021-02-18] MEDS: LINEZOLID 600MG/300ML 300 ML IV SCH ×3 (00:09→21:37)
[2021-02-18] MEDS: InsuLIN REG 1unit/0.01ml Soln (100units/ml) SC SCH ×7 (00:31→23:59)
[2021-02-18] MEDS ORDERED: SODIUM BICARBONATE 8.4 % INJ 50ML VIAL IV ONE (00:59)
[2021-02-18] MEDS: SODIUM BICARBONATE 50ML VIAL 50 ML in SOD CHL 0.45% WITH 20MEQ KCL 1,000 ML IV SCH (02:46)
[2021-02-18 04:50] LABS: Basophils # (auto) 0.1 10 ^3/uL (0-0.2); Basophils % (auto) 0.5 % (0.0-2.0); Eosinophils # (auto) 0.2 10 ^3/uL (0-0.8); Eosinophils % (auto) 2.2 % (0.0-7.0); Hematocrit 37.3 % (41.0-53.0); Hemoglobin 11.8 g/dL (13.5-17.5); Lymphocytes # (auto) 1.9 10 ^3/uL (0.4-5.4); Lymphocytes % (auto) 18.6 % (10.0-50.0); Mean Corpuscular Hgb Conc. 31.6 g/dL (32.0-36.0); Mean Corpuscular Volume 98.1 fL (80.0-100.0); Monocytes # (auto) 0.9 10 ^3/uL (0-1.3); Monocytes % (auto) 8.8 % (0.0-12.0); Neutrophils # (auto) 7.2 10 ^3/uL (1.6-8.6); Neutrophils % (auto) 69.9 % (37.0-80.0); Nucleated Red Blood Cells % 0.5 %; Platelet Count (auto) 199 10^3/uL (140-450); White Blood Cell 10.3 10^3/uL (4.4-10.8)
[2021-02-18] MEDS ORDERED: REGADENOSON 0.4 MG/5 ML SYRG IV ONE (09:00)
[2021-02-18 09:41] LABS: Calcium 8.4 mg/dL (8.5-10.1); Magnesium 2.1 mg/dL (1.6-2.6); Potassium 3.1 mmol/L (3.5-5.1)
[2021-02-18 09:44] LABS: BUN/Creatinine Ratio 13.6; Phosphorus 2.6 mg/dL (2.5-4.90)
[2021-02-18] MEDS: ASPirin 81 mg TAB PO SCH (10:35)
[2021-02-18] MEDS: ENOXAPARIN SOD 40 MG/0.4 ML SYRINGE SC SCH (10:42)
[2021-02-18] MEDS: SOD CHL 0.45% WITH 20MEQ KCL 1,000 ML IV SCH ×2 (13:46→21:37)
[2021-02-18] MEDS ORDERED: POTASSIUM CHLORIDE 40 MEQ, LIDOCAINE 1% (LOCAL ANESTH.) 4 ML in SODIUM CHL 0.9% 250 ML IV ONE (14:15)
[2021-02-18] MEDS: ONDANSETRON HCL 4 MG/2 ML VIAL IV PRN (15:55)
[2021-02-19] VITALS (9 sets, daily range): BP systolic 143–163; BP diastolic 88–107
[2021-02-19] MEDS: ACCU-CHEK COMFORT CURVE STRIP VI SCH ×6 (00:03→21:22)
[2021-02-19] MEDS: InsuLIN REG 1unit/0.01ml Soln (100units/ml) SC SCH ×5 (04:55→21:24)
[2021-02-19] MEDS: SOD CHL 0.45% WITH 20MEQ KCL 1,000 ML IV SCH ×4 (06:13→19:26)
[2021-02-19 07:02] LABS: Basophils # (auto) 0 10 ^3/uL (0-0.2); Basophils % (auto) 0.6 % (0.0-2.0); Eosinophils # (auto) 0.2 10 ^3/uL (0-0.8); Eosinophils % (auto) 2.6 % (0.0-7.0); Hemoglobin 11.4 g/dL (13.5-17.5); Lymphocytes # (auto) 2.1 10 ^3/uL (0.4-5.4); Lymphocytes % (auto) 27.2 % (10.0-50.0); Mean Corpuscular Hemoglobin 31.2 pg (28.0-32.0); Mean Corpuscular Hgb Conc. 33.6 g/dL (32.0-36.0); Monocytes # (auto) 0.6 10 ^3/uL (0-1.3); Monocytes % (auto) 7.8 % (0.0-12.0); Neutrophils # (auto) 4.9 10 ^3/uL (1.6-8.6); Neutrophils % (auto) 61.8 % (37.0-80.0); Nucleated Red Blood Cells % 0.1 %; Platelet Count (auto) 242 10^3/uL (140-450); Red Blood Cells 3.65 10^6/uL (4.5-5.90); Red Cell Distribution Width 14.3 % (11.8-14.3); White Blood Cell 7.9 10^3/uL (4.4-10.8)
[2021-02-19 07:21] LABS: BUN/Creatinine Ratio 11.6; Magnesium 2.1 mg/dL (1.6-2.6); Potassium 3.5 mmol/L (3.5-5.1)
[2021-02-19] MEDS: ACETAMINOPHEN 325 MG TAB PO PRN (08:18)
[2021-02-19] MEDS: LINEZOLID 600MG/300ML 300 ML IV SCH ×2 (09:37→21:22)
[2021-02-19] MEDS: ENOXAPARIN SOD 40 MG/0.4 ML SYRINGE SC SCH (09:37)
[2021-02-19] MEDS: METOPROLOL TARTRATE 25 MG TAB PO SCH ×2 (09:49→21:22)
[2021-02-19] MEDS: ASPirin 81 mg TAB PO SCH (09:49)
[2021-02-19] MEDS ORDERED: ACETYLCYSTEINE ORAL for CIN 20%(200MG/ML) 4ML PO ONE (16:30)
[2021-02-19] MEDS: ATORVASTATIN 20 MG TAB PO SCH (21:21)
[2021-02-20] VITALS (7 sets, daily range): BP systolic 115–160; BP diastolic 67–105
[2021-02-20] MEDS: InsuLIN REG 1unit/0.01ml Soln (100units/ml) SC SCH ×5 (00:05→16:00)
[2021-02-20] MEDS: ACCU-CHEK COMFORT CURVE STRIP VI SCH ×5 (00:06→16:00)
[2021-02-20] MEDS: SOD CHL 0.45% WITH 20MEQ KCL 1,000 ML IV SCH ×4 (04:21→20:36)
[2021-02-20] MEDS: hydrALAZINE HCL 20 MG/ML VL IV PRN ×2 (04:22→11:23)
[2021-02-20 08:14] LABS: Basophils # (auto) 0 10 ^3/uL (0-0.2); Basophils % (auto) 0.5 % (0.0-2.0); Eosinophils # (auto) 0.2 10 ^3/uL (0-0.8); Eosinophils % (auto) 2.8 % (0.0-7.0); Hematocrit 30.7 % (41.0-53.0); Hemoglobin 10.7 g/dL (13.5-17.5); Lymphocytes # (auto) 2.2 10 ^3/uL (0.4-5.4); Lymphocytes % (auto) 33.7 % (10.0-50.0); Mean Corpuscular Hemoglobin 31.6 pg (28.0-32.0); Mean Corpuscular Hgb Conc. 34.7 g/dL (32.0-36.0); Mean Corpuscular Volume 91.1 fL (80.0-100.0); Monocytes # (auto) 0.5 10 ^3/uL (0-1.3); Monocytes % (auto) 7.1 % (0.0-12.0); Neutrophils # (auto) 3.7 10 ^3/uL (1.6-8.6); Neutrophils % (auto) 55.9 % (37.0-80.0); Nucleated Red Blood Cells % 0.2 %; Platelet Count (auto) 229 10^3/uL (140-450); Red Blood Cells 3.38 10^6/uL (4.5-5.90); Red Cell Distribution Width 14.1 % (11.8-14.3); White Blood Cell 6.6 10^3/uL (4.4-10.8)
[2021-02-20] MEDS: ACETAMINOPHEN 325 MG TAB PO PRN (08:20)
[2021-02-20 08:27] LABS: BUN/Creatinine Ratio 10.2; Calcium 7.9 mg/dL (8.5-10.1); Potassium 3.1 mmol/L (3.5-5.1)
[2021-02-20 09:03] LABS: INR 1.06 (0.9-1.15); Partial Thromboplastin Time 25.4 sec (23.0-31.2)
[2021-02-20] MEDS ORDERED: POTASSIUM EFFERVESENT TAB 25 MEQ PO ONE (09:30)
[2021-02-20] MEDS: ENOXAPARIN SOD 40 MG/0.4 ML SYRINGE SC SCH (10:00)
[2021-02-20] MEDS: ACETYLCYSTEINE ORAL for CIN 20%(200MG/ML) 4ML PO SCH (10:03)
[2021-02-20] MEDS: LINEZOLID 600MG/300ML 300 ML IV SCH ×2 (10:05→22:00)
[2021-02-20] MEDS: METOPROLOL TARTRATE 25 MG TAB PO SCH (10:05)
[2021-02-20] MEDS: ASPirin 81 mg TAB PO SCH (10:05)
[2021-02-20] MEDS ORDERED: LIDOCAINE 2%HCL (LOCAL ANESTH.) INJ 20ML MDV ONE (12:49)
[2021-02-20] MEDS ORDERED: IOHEXOL 350 MG/ML 100ML IJ ONE (12:50)
[2021-02-20] MEDS ORDERED: HEPARIN SODIUM (PORCINE) 5000 UNITS/ML 1ML VIAL ONE (12:55)
[2021-02-20] MEDS ORDERED: ANGIOMAX 250 MG VIAL IV ONE (12:55)
[2021-02-20] MEDS ORDERED: SODIUM CHL 0.9% 0 ML ONE (12:56)
[2021-02-20] MEDS ORDERED: fentaNYL CITRATE 100 MCG/2 ML VL ONE (12:56)
[2021-02-20] MEDS ORDERED: MIDAZOLAM HCL 1MG/1ML-2 ML VIAL ONE (12:56)
[2021-02-20] MEDS ORDERED: VERAPAMIL 2.5MG/ML INJ 2ML VIAL IV ONE (12:56)
[2021-02-20] MEDS ORDERED: IODIXANOL 320MG/ML 100ML BTL IV ONE (13:09)
[2021-02-20] MEDS ORDERED: DEXTROSE (50%) 50ML SYRG IV PRN (17:30)
[2021-02-20] MEDS: ONDANSETRON HCL 4 MG/2 ML VIAL IV PRN (20:35)
[2021-02-21] VITALS (8 sets, daily range): BP systolic 112–148; BP diastolic 69–90
[2021-02-21] MEDS: ACETYLCYSTEINE ORAL for CIN 20%(200MG/ML) 4ML PO SCH ×3 (01:21→22:13)
[2021-02-21] MEDS: ACCU-CHEK COMFORT CURVE STRIP VI SCH ×5 (01:21→23:50)
[2021-02-21] MEDS: ATORVASTATIN 20 MG TAB PO SCH ×2 (01:21→22:12)
[2021-02-21] MEDS: METOPROLOL TARTRATE 25 MG TAB PO SCH ×3 (01:21→22:18)
[2021-02-21] MEDS: InsuLIN REG 1unit/0.01ml Soln (100units/ml) SC SCH ×5 (01:25→23:55)
[2021-02-21] MEDS: SOD CHL 0.45% WITH 20MEQ KCL 1,000 ML IV SCH ×3 (05:21→22:33)
[2021-02-21 09:15] LABS: Basophils # (auto) 0 10 ^3/uL (0-0.2); Basophils % (auto) 0.5 % (0.0-2.0); Eosinophils # (auto) 0.1 10 ^3/uL (0-0.8); Eosinophils % (auto) 2.5 % (0.0-7.0); Hematocrit 36.4 % (41.0-53.0); Hemoglobin 11.8 g/dL (13.5-17.5); Lymphocytes # (auto) 2.3 10 ^3/uL (0.4-5.4); Lymphocytes % (auto) 37.4 % (10.0-50.0); Mean Corpuscular Hgb Conc. 32.4 g/dL (32.0-36.0); Mean Corpuscular Volume 95.9 fL (80.0-100.0); Monocytes # (auto) 0.5 10 ^3/uL (0-1.3); Monocytes % (auto) 7.5 % (0.0-12.0); Neutrophils # (auto) 3.2 10 ^3/uL (1.6-8.6); Neutrophils % (auto) 52.1 % (37.0-80.0); Nucleated Red Blood Cells % 0.1 %; Platelet Count (auto) 190 10^3/uL (140-450); Red Cell Distribution Width 14.6 % (11.8-14.3); White Blood Cell 6.1 10^3/uL (4.4-10.8)
[2021-02-21 09:34] LABS: Albumin 2.3 g/dL (3.4-5.0); Calcium 7.7 mg/dL (8.5-10.1); Potassium 3.5 mmol/L (3.5-5.1)
[2021-02-21 09:37] LABS: BUN/Creatinine Ratio 8.4; Bilirubin, Total 0.4 mg/dL (0.2-1.0); Total Protein 6.8 g/dL (6.4-8.2)
[2021-02-21] MEDS: ENOXAPARIN SOD 40 MG/0.4 ML SYRINGE SC SCH (10:09)
[2021-02-21] MEDS: ASPirin 81 mg TAB PO SCH (10:09)
[2021-02-21] MEDS: LINEZOLID 600MG/300ML 300 ML IV SCH ×2 (10:12→22:34)
[2021-02-22 05:08] VITALS: BP 135/88
[2021-02-22] MEDS: SOD CHL 0.45% WITH 20MEQ KCL 1,000 ML IV SCH ×4 (05:15→23:50)
[2021-02-22] MEDS: ACCU-CHEK COMFORT CURVE STRIP VI SCH ×3 (06:12→18:33)
[2021-02-22 06:14] LABS: Basophils # (auto) 0 10 ^3/uL (0-0.2); Basophils % (auto) 0.7 % (0.0-2.0); Eosinophils # (auto) 0.1 10 ^3/uL (0-0.8); Eosinophils % (auto) 2.9 % (0.0-7.0); Hematocrit 28.1 % (41.0-53.0); Hemoglobin 9.7 g/dL (13.5-17.5); Lymphocytes % (auto) 40.1 % (10.0-50.0); Mean Corpuscular Hemoglobin 32.1 pg (28.0-32.0); Mean Corpuscular Hgb Conc. 34.7 g/dL (32.0-36.0); Mean Corpuscular Volume 92.7 fL (80.0-100.0); Monocytes # (auto) 0.5 10 ^3/uL (0-1.3); Monocytes % (auto) 10.2 % (0.0-12.0); Neutrophils # (auto) 2.3 10 ^3/uL (1.6-8.6); Neutrophils % (auto) 46.1 % (37.0-80.0); Nucleated Red Blood Cells % 0.2 %; Platelet Count (auto) 220 10^3/uL (140-450); Red Blood Cells 3.03 10^6/uL (4.5-5.90); Red Cell Distribution Width 14.3 % (11.8-14.3); White Blood Cell 4.9 10^3/uL (4.4-10.8)
[2021-02-22] MEDS: InsuLIN REG 1unit/0.01ml Soln (100units/ml) SC SCH ×3 (06:14→18:36)
[2021-02-22 06:28] LABS: BUN/Creatinine Ratio 7.1; Calcium 7.4 mg/dL (8.5-10.1); Potassium 3.9 mmol/L (3.5-5.1)
[2021-02-22 09:22] VITALS: BP 146/98
[2021-02-22] MEDS: ASPirin 81 mg TAB PO SCH (09:53)
[2021-02-22] MEDS: METOPROLOL TARTRATE 25 MG TAB PO SCH ×2 (09:53→22:08)
[2021-02-22] MEDS: ENOXAPARIN SOD 40 MG/0.4 ML SYRINGE SC SCH (09:54)
[2021-02-22] MEDS: LINEZOLID 600MG/300ML 300 ML IV SCH ×2 (09:54→22:07)
[2021-02-22 12:53] VITALS: BP 140/88
[2021-02-22 16:59] VITALS: BP 136/88
[2021-02-22 22:00] VITALS: BP 137/94
[2021-02-22] MEDS: ATORVASTATIN 20 MG TAB PO SCH (22:07)
[2021-02-23] MEDS: ACCU-CHEK COMFORT CURVE STRIP VI SCH ×3 (00:19→12:00)
[2021-02-23] MEDS: InsuLIN REG 1unit/0.01ml Soln (100units/ml) SC SCH ×3 (00:20→13:36)
[2021-02-23 05:00] VITALS: BP 133/87
[2021-02-23 08:00] VITALS: BP 133/93
[2021-02-23 09:00] VITALS: BP 135/92
[2021-02-23] MEDS: ASPirin 81 mg TAB PO SCH (10:57)
[2021-02-23] MEDS: METOPROLOL TARTRATE 25 MG TAB PO SCH (10:57)
[2021-02-23] MEDS: LINEZOLID 600MG/300ML 300 ML IV SCH (10:57)
[2021-02-23] MEDS: ENOXAPARIN SOD 40 MG/0.4 ML SYRINGE SC SCH (10:57)
[2021-02-23 12:46] LABS: BUN/Creatinine Ratio 6.4; Calcium 8.1 mg/dL (8.5-10.1)
[2021-02-23 13:00] VITALS: BP 143/87
[2021-02-23 14:56] VITALS: BP 143/87
== END 2021-02-23 16:01 | disposition home health service (06) | DRG 190 ==
LOC: ER 14:21 → EDBD 14:21 → TELE 18:01 → DOU IN ICU 20:53 → TELE-CENTR 02-21 21:45
PROVIDERS: ADMIT Internal Medicine; ATTEND Internal Medicine
PROC: 4A023N7 Measurement of Cardiac Sampling and Pressure, Left Heart, Percutaneous Approach (ICD-10-PCS; principal; 2021-02-20)
PROC: B215YZZ Fluoroscopy of Left Heart using Other Contrast (ICD-10-PCS; 2021-02-20)
PROC: B211YZZ Fluoroscopy of Multiple Coronary Arteries using Other Contrast (ICD-10-PCS; 2021-02-20)
DX: I21.4 Non-ST elevation (NSTEMI) myocardial infarction (principal); J96.21 Acute and chronic respiratory failure with hypoxia; N17.0 Acute kidney failure with tubular necrosis; J15.212 Pneumonia due to Methicillin resistant Staphylococcus aureus; E11.65 Type 2 diabetes mellitus with hyperglycemia; E11.22 Type 2 diabetes mellitus with diabetic chronic kidney disease; N18.32 Chronic kidney disease, stage 3b; E86.0 Dehydration; E87.2 Acidosis; E87.0 Hyperosmolality and hypernatremia; E87.6 Hypokalemia; J98.11 Atelectasis; E66.01 Morbid (severe) obesity due to excess calories; Z68.35 Body mass index [BMI] 35.0-35.9, adult; Z20.822 Contact with and (suspected) exposure to COVID-19; Z88.0 Allergy status to penicillin; E78.5 Hyperlipidemia, unspecified; E88.09 Other disorders of plasma-protein metabolism, not elsewhere classified; I12.9 Hypertensive chronic kidney disease with stage 1 through stage 4 chronic kidney disease, or unspecified chronic kidney disease; I25.10 Atherosclerotic heart disease of native coronary artery without angina pectoris; N40.0 Benign prostatic hyperplasia without lower urinary tract symptoms; Z78.9 Other specified health status; Z79.4 Long term (current) use of insulin; Z82.49 Family history of ischemic heart disease and other diseases of the circulatory system; Z82.61 Family history of arthritis
CPT/HCPCS: 36415; 36600; 71045; 71250; 78452; 80048; 80053; 80061; 81001; 82570; 82805; 82962; 83605; 83735; 83880; 84100; 84156; 84300; 84484; 84550; 85025; 85610; 85730; 86141; 86850; 86900; 86901; 87040; 87081; 87426; 93005; 93017; 93306; 96361; 96365; 99152; 99291; G0378; J1815; J1956; J2001; J2250; J2405; J3480; Q9967

== ENCOUNTER 2024-04-23 14:17 | Inpatient (IN) | payer MEDICAID ==
[~2024-04-23] VITALS: Ht 180.3 cm; Wt 136.5 kg
[~2024-04-23 14:17] MED LIST changes: -ACETYLCYSTEINE ORAL for CIN 20%(200MG/ML) 4ML PO SCH; -AMLO-489 PO; +AMLO1TAB22 PO; -LISI40TA11 PO
[2024-04-23] MEDS: SODIUM CHLORIDE 0.9% 1,000 ML IV ONE ×2 (15:00→15:26)
[2024-04-23 16:02] LABS: Basophils # (auto) 0 10 ^3/uL (0-0.2); Basophils % (auto) 0.4 % (0.0-2.0); Eosinophils # (auto) 0 10 ^3/uL (0-0.8); Eosinophils % (auto) 0.4 % (0.0-7.0); Hematocrit 43.2 % (41.0-53.0); Hemoglobin 14.9 g/dL (13.5-17.5); Lymphocytes # (auto) 1.2 10 ^3/uL (0.4-5.4); Lymphocytes % (auto) 14.6 % (10.0-50.0); Mean Corpuscular Hemoglobin 31.6 pg (28.0-32.0); Mean Corpuscular Hgb Conc. 34.5 g/dL (32.0-36.0); Mean Corpuscular Volume 91.9 fL (80.0-100.0); Monocytes # (auto) 0.5 10 ^3/uL (0-1.3); Monocytes % (auto) 6.6 % (0.0-12.0); Neutrophils # (auto) 6.3 10 ^3/uL (1.6-8.6); Nucleated Red Blood Cells % 0.1 %; Red Cell Distribution Width 13.9 % (11.8-14.3)
[2024-04-23 16:15] LABS: Chloride 112 mmol/L (98-107); Potassium 3.7 mmol/L (3.5-5.1); Sodium 145 mmol/L (136-145)
[2024-04-23] MEDS: SILVER SULFADIAZINE 1 % TOPICAL CREAM 50GM TOP ONE (16:15)
[2024-04-23 16:16] LABS: Anion Gap 17 (5-15); Carbon Dioxide 16 mmol/L (20-30)
[2024-04-23 16:17] LABS: Calcium 9.7 mg/dL (8.7-10.4)
[2024-04-23 16:21] LABS: Glucose 127 mg/dL (74-106)
[2024-04-23 16:22] LABS: BUN/Creatinine Ratio 6.3 (10.0-20.0); Blood Urea Nitrogen 14 mg/dL (9-23)
[2024-04-23] MEDS: MORPHINE SULFATE 4 MG/ML SYR/VIAL IV ONE (17:29)
[2024-04-23] MEDS: ONDANSETRON HCL 4 MG/2 ML VIAL IV ONE (17:30)
[2024-04-23 18:20] VITALS: PULSE 80; RESP 20; O2SAT 96
[2024-04-23 18:38] LABS: Urine Bacteria None Seen /hpf (None Seen)
[2024-04-23 19:03] LABS: Urine Blood 2+ /uL (Negative); Urine Clarity Clear (Clear); Urine Color Light-Yellow (Yellow); Urine Hyaline Cast FEW /lpf (0 - 2); Urine Mucus FEW (None Seen); Urine Protein, UAD 1+ (Negative); Urine Specific Gravity 1.014 (1.001-1.035); Urine Urobilinogen Normal (Negative); Urine WBC 2 /hpf (0 - 3)
[2024-04-23] MEDS ORDERED: DEXTROSE (50%) 50ML SYRG IV PRN (19:15)
[2024-04-23] MEDS ORDERED: DOCUSATE SOD 100 MG CAP PO PRN (19:15)
[2024-04-23] MEDS: CLINDAMYCIN 300MG IV 50 ML IV ONE (19:53)
[2024-04-23 19:56] LABS: Phosphorus 1.4 mg/dL (2.4-5.1)
[2024-04-23] MEDS: ONDANSETRON HCL 4 MG/2 ML VIAL IV PRN (19:59)
[2024-04-23] MEDS: ENOXAPARIN SOD 40 MG/0.4 ML SYRINGE SC SCH (19:59)
[2024-04-23] MEDS: MORPHINE SULFATE INJ 2 MG/ml SYRG IV ONE (19:59)
[2024-04-23 20:00] VITALS: PULSE 83; RESP 16; O2SAT 100
[2024-04-23] MEDS: TETANUS-DIPTH-ACEL PERTUSSIS 0.5ML SYR Tdap IM ONE (20:01)
[2024-04-23] MEDS: SODIUM CHLORIDE 0.9% 1,000 ML IV SCH (20:02)
[2024-04-23 20:12] LABS: Magnesium 2.1 mg/dL (1.6-2.6)
[2024-04-23] MEDS: NITROGLYCERIN 0.4 MG SL TAB SL PRN (20:40)
[2024-04-23] MEDS: InsuLIN REG 1unit/0.01ml Soln (100units/ml) SC SCH (22:00)
[2024-04-23] MEDS: ACCU-CHEK COMFORT CURVE STRIP VI SCH (22:00)
[2024-04-24] MEDS: cloNIDine HCL 0.1 MG TAB PO ONE (00:33)
[2024-04-24] MEDS: CLINDAMYCIN 300MG IV 50 ML IV SCH (05:05)
[2024-04-24 07:39] LABS: Basophils # (auto) 0.1 10 ^3/uL (0-0.2); Basophils % (auto) 0.7 % (0.0-2.0); Eosinophils # (auto) 0 10 ^3/uL (0-0.8); Eosinophils % (auto) 0.5 % (0.0-7.0); Hematocrit 43.8 % (41.0-53.0); Lymphocytes # (auto) 2.6 10 ^3/uL (0.4-5.4); Lymphocytes % (auto) 33.7 % (10.0-50.0); Mean Corpuscular Hemoglobin 31.5 pg (28.0-32.0); Mean Corpuscular Hgb Conc. 34.3 g/dL (32.0-36.0); Mean Corpuscular Volume 91.9 fL (80.0-100.0); Monocytes # (auto) 0.8 10 ^3/uL (0-1.3); Neutrophils # (auto) 4.2 10 ^3/uL (1.6-8.6); Neutrophils % (auto) 54.1 % (37.0-80.0); Nucleated Red Blood Cells % 0.2 %; Red Blood Cells 4.77 10^6/uL (4.5-5.90); Red Cell Distribution Width 14.3 % (11.8-14.3); White Blood Cell 7.7 10^3/uL (4.4-10.8)
[2024-04-24 07:55] LABS: Alanine Aminotransferase 28 U/L (7-40); Albumin 3.9 g/dL (3.2-4.8); Alkaline Phosphatase 92 U/L (46-116); Anion Gap 12 (5-15); Aspartate Aminotransferase 52 U/L (13-40); BUN/Creatinine Ratio 7.1 (10.0-20.0); Blood Urea Nitrogen 12 mg/dL (9-23); Calcium 8.5 mg/dL (8.7-10.4); Carbon Dioxide 20 mmol/L (20-30); Chloride 109 mmol/L (98-107); Glucose 107 mg/dL (74-106); Potassium 3.6 mmol/L (3.5-5.1); Sodium 141 mmol/L (136-145)
[2024-04-24 07:56] LABS: Bilirubin, Total 0.7 mg/dL (0.2-1.0); Total Protein 6.4 g/dL (5.7-8.2)
[2024-04-24 09:00] VITALS: PULSE 71; RESP 15; O2SAT 98
[2024-04-24] MEDS ORDERED: ATEN50TA PO (13:40)
[2024-04-24] MEDS ORDERED: AMLO1TAB22 PO (13:40)
[2024-04-24] MEDS ORDERED: FURO20TA3 PO (13:40)
[2024-04-24] MEDS ORDERED: ASPI-543 PO (13:40)
[2024-04-24] MEDS ORDERED: BUPR-346 PO (13:40)
[2024-04-24] MEDS ORDERED: ARIP20TA4 PO (13:40)
[2024-04-24] MEDS ORDERED: QUET100T47 PO (13:40)
[2024-04-24] MEDS ORDERED: DONE1TAB88 PO (13:40)
[2024-04-24] MEDS: SODIUM CHLORIDE 0.9% 1,000 ML IV SCH ×2 (13:44→20:43)
[2024-04-24 15:59] LABS: Creatinine, Urine 209.34 mg/dL (30.0-125.0)
[2024-04-24 16:52] VITALS: BP 154/105; PULSE 72; RESP 19; TEMP 98.5; O2SAT 99
[2024-04-24] MEDS ORDERED: METF-929 PO (17:11)
[2024-04-24] MEDS: amLODIPine BESYLATE 5 MG TAB PO ONE (18:38)
[2024-04-24 20:00] VITALS: PULSE 76; PULSE 78; RESP 18; O2SAT 98
[2024-04-24] MEDS: PANTOPRAZOLE 40 MG/10 ML VIAL INJ IV ONE (20:40)
[2024-04-24 21:00] VITALS: BP 172/110; PULSE 73; RESP 18; TEMP 99.2; O2SAT 98
[2024-04-24] MEDS: hydrALAZINE HCL 20 MG/ML VL IV PRN (22:41)
[2024-04-25] VITALS (9 sets, daily range): BP systolic 138–169; BP diastolic 72–106; PULSE 87–99; RESP 17–20; TEMP 97.7–98.3; O2SAT 92–100
[2024-04-25 07:36] LABS: Chloride 111 mmol/L (98-107); Potassium 3.6 mmol/L (3.5-5.1); Sodium 142 mmol/L (136-145)
[2024-04-25 07:37] LABS: Anion Gap 11 (5-15); Calcium 8.5 mg/dL (8.7-10.4); Carbon Dioxide 20 mmol/L (20-30)
[2024-04-25 07:40] LABS: Basophils # (auto) 0 10 ^3/uL (0-0.2); Basophils % (auto) 0.4 % (0.0-2.0); Eosinophils # (auto) 0.1 10 ^3/uL (0-0.8); Eosinophils % (auto) 1.1 % (0.0-7.0); Hematocrit 45.2 % (41.0-53.0); Hemoglobin 15.6 g/dL (13.5-17.5); Lymphocytes # (auto) 2.4 10 ^3/uL (0.4-5.4); Lymphocytes % (auto) 29.8 % (10.0-50.0); Mean Corpuscular Hemoglobin 31.9 pg (28.0-32.0); Mean Corpuscular Hgb Conc. 34.5 g/dL (32.0-36.0); Mean Corpuscular Volume 92.4 fL (80.0-100.0); Monocytes # (auto) 0.9 10 ^3/uL (0-1.3); Monocytes % (auto) 10.5 % (0.0-12.0); Neutrophils # (auto) 4.7 10 ^3/uL (1.6-8.6); Neutrophils % (auto) 58.2 % (37.0-80.0); Nucleated Red Blood Cells % 0.4 %; Red Blood Cells 4.89 10^6/uL (4.5-5.90); Red Cell Distribution Width 13.9 % (11.8-14.3); White Blood Cell 8.1 10^3/uL (4.4-10.8)
[2024-04-25 07:42] LABS: BUN/Creatinine Ratio 5.6 (10.0-20.0); Blood Urea Nitrogen 9 mg/dL (9-23); Glucose 114 mg/dL (74-106)
[2024-04-25] MEDS: SILVER SULFADIAZINE 1 % TOPICAL CREAM 50GM TOP SCH (10:00)
[2024-04-25] MEDS: PANTOPRAZOLE 40 MG/10 ML VIAL INJ IV SCH (10:14)
[2024-04-25] MEDS: amLODIPine BESYLATE 5 MG TAB PO SCH (10:14)
[2024-04-25] MEDS: ATENOLOL 25 MG TAB PO SCH (10:15)
[2024-04-25] MEDS ORDERED: SEMA1INJ2 SC (11:39)
[2024-04-25] MEDS ORDERED: ECON1CRE6 TOP (11:43)
[2024-04-25] MEDS ORDERED: TRAZ-228 PO (11:43)
[2024-04-25] MEDS ORDERED: HYDR-4798 PO (11:43)
[2024-04-25] MEDS ORDERED: POLYPOW59 PO (11:43)
[2024-04-25] MEDS ORDERED: HYDR25TA88 PO (11:43)
[2024-04-25] MEDS: MORPHINE SULFATE INJ 2 MG/ml SYRG IV PRN (13:06)
[2024-04-25] MEDS ORDERED: HYDROmorphone HCL 2 MG/ML VL/or syr IV PRN (14:30)
[2024-04-25] MEDS: hydrALAZINE HCL 20 MG/ML VL IV ONE (15:05)
[2024-04-25] MEDS: SODIUM CHLORIDE 0.9% 1,000 ML IV SCH (15:05)
[2024-04-26] VITALS (9 sets, daily range): BP systolic 136–198; BP diastolic 73–83; PULSE 56–89; RESP 16–20; TEMP 97.5–101; O2SAT 94–97
[2024-04-26 08:43] LABS: Basophils # (auto) 0 10 ^3/uL (0-0.2); Basophils % (auto) 0.4 % (0.0-2.0); Eosinophils # (auto) 0.1 10 ^3/uL (0-0.8); Eosinophils % (auto) 1.2 % (0.0-7.0); Hematocrit 45.5 % (41.0-53.0); Hemoglobin 15.4 g/dL (13.5-17.5); Lymphocytes # (auto) 2.9 10 ^3/uL (0.4-5.4); Lymphocytes % (auto) 33.2 % (10.0-50.0); Mean Corpuscular Hemoglobin 31.3 pg (28.0-32.0); Mean Corpuscular Hgb Conc. 33.8 g/dL (32.0-36.0); Mean Corpuscular Volume 92.5 fL (80.0-100.0); Monocytes % (auto) 11.1 % (0.0-12.0); Neutrophils # (auto) 4.7 10 ^3/uL (1.6-8.6); Neutrophils % (auto) 54.1 % (37.0-80.0); Nucleated Red Blood Cells % 0.2 %; Red Blood Cells 4.91 10^6/uL (4.5-5.90); Red Cell Distribution Width 14.1 % (11.8-14.3); White Blood Cell 8.6 10^3/uL (4.4-10.8)
[2024-04-26 09:21] LABS: Alanine Aminotransferase 26 U/L (7-40); Albumin 3.3 g/dL (3.2-4.8); Alkaline Phosphatase 78 U/L (46-116); Anion Gap 8 (5-15); Aspartate Aminotransferase 75 U/L (13-40); BUN/Creatinine Ratio 9.4 (10.0-20.0); Bilirubin, Total 0.7 mg/dL (0.2-1.0); Blood Urea Nitrogen 15 mg/dL (9-23); Calcium 8.7 mg/dL (8.7-10.4); Carbon Dioxide 21 mmol/L (20-30); Chloride 110 mmol/L (98-107); Glucose 111 mg/dL (74-106); Potassium 4.2 mmol/L (3.5-5.1); Sodium 139 mmol/L (136-145)
[2024-04-26 09:22] LABS: Total Protein 5.2 g/dL (5.7-8.2)
[2024-04-26 15:28] LABS: Chloride 110 mmol/L (98-107); Potassium 3.6 mmol/L (3.5-5.1); Sodium 136 mmol/L (136-145)
[2024-04-26 15:29] LABS: Anion Gap 7 (5-15); Carbon Dioxide 19 mmol/L (20-30)
[2024-04-26 15:30] LABS: Calcium 8.3 mg/dL (8.7-10.4)
[2024-04-26 15:34] LABS: BUN/Creatinine Ratio 6.1 (10.0-20.0); Blood Urea Nitrogen 10 mg/dL (9-23); Glucose 119 mg/dL (74-106)
[2024-04-27] VITALS (8 sets, daily range): BP systolic 127–147; BP diastolic 52–85; PULSE 72–82; RESP 17–20; TEMP 98–99.4; O2SAT 93–98
[2024-04-27 07:36] LABS: Basophils # (auto) 0 10 ^3/uL (0-0.2); Basophils % (auto) 0.7 % (0.0-2.0); Eosinophils # (auto) 0.2 10 ^3/uL (0-0.8); Eosinophils % (auto) 2.2 % (0.0-7.0); Hematocrit 38.4 % (41.0-53.0); Hemoglobin 13.6 g/dL (13.5-17.5); Lymphocytes # (auto) 2.6 10 ^3/uL (0.4-5.4); Lymphocytes % (auto) 37.8 % (10.0-50.0); Mean Corpuscular Hemoglobin 32.5 pg (28.0-32.0); Mean Corpuscular Hgb Conc. 35.5 g/dL (32.0-36.0); Mean Corpuscular Volume 91.5 fL (80.0-100.0); Monocytes # (auto) 0.7 10 ^3/uL (0-1.3); Monocytes % (auto) 10.5 % (0.0-12.0); Neutrophils # (auto) 3.4 10 ^3/uL (1.6-8.6); Neutrophils % (auto) 48.8 % (37.0-80.0); Nucleated Red Blood Cells % 0.1 %; Red Blood Cells 4.19 10^6/uL (4.5-5.90); White Blood Cell 6.9 10^3/uL (4.4-10.8)
[2024-04-27 07:52] LABS: Alanine Aminotransferase 23 U/L (7-40); Alkaline Phosphatase 69 U/L (46-116); Anion Gap 8 (5-15); Aspartate Aminotransferase 65 U/L (13-40); BUN/Creatinine Ratio 8.5 (10.0-20.0); Bilirubin, Total 0.6 mg/dL (0.2-1.0); Blood Urea Nitrogen 13 mg/dL (9-23); Carbon Dioxide 20 mmol/L (20-30); Chloride 110 mmol/L (98-107); Glucose 98 mg/dL (74-106); Potassium 3.5 mmol/L (3.5-5.1); Sodium 138 mmol/L (136-145); Total Protein 4.9 g/dL (5.7-8.2)
[2024-04-27 08:04] LABS: Creatine Kinase IFCC 2453 U/L (46-171)
[2024-04-27] MEDS: SODIUM CHLORIDE 0.9% 1,000 ML IV SCH (08:30)
[2024-04-27] MEDS: cefTRIAXone 1GM/50ML D5W 50 ML IV SCH (09:13)
[2024-04-28] VITALS (7 sets, daily range): BP systolic 137–160; BP diastolic 58–80; PULSE 66–82; RESP 19–20; TEMP 98–99.2; O2SAT 94–98
[2024-04-28 06:03] LABS: Basophils # (auto) 0 10 ^3/uL (0-0.2); Basophils % (auto) 0.8 % (0.0-2.0); Eosinophils # (auto) 0.1 10 ^3/uL (0-0.8); Eosinophils % (auto) 1.6 % (0.0-7.0); Hematocrit 38.6 % (41.0-53.0); Hemoglobin 13.6 g/dL (13.5-17.5); Lymphocytes # (auto) 2.1 10 ^3/uL (0.4-5.4); Lymphocytes % (auto) 34.4 % (10.0-50.0); Mean Corpuscular Hemoglobin 31.9 pg (28.0-32.0); Mean Corpuscular Hgb Conc. 35.1 g/dL (32.0-36.0); Mean Corpuscular Volume 90.8 fL (80.0-100.0); Monocytes # (auto) 0.7 10 ^3/uL (0-1.3); Monocytes % (auto) 11.8 % (0.0-12.0); Neutrophils # (auto) 3.1 10 ^3/uL (1.6-8.6); Neutrophils % (auto) 51.4 % (37.0-80.0); Nucleated Red Blood Cells % 0.1 %; Red Blood Cells 4.25 10^6/uL (4.5-5.90); Red Cell Distribution Width 13.9 % (11.8-14.3)
[2024-04-28 06:14] LABS: Anion Gap 11 (5-15); Carbon Dioxide 21 mmol/L (20-30); Chloride 106 mmol/L (98-107); Potassium 3.6 mmol/L (3.5-5.1); Sodium 138 mmol/L (136-145)
[2024-04-28 06:15] LABS: Calcium 8.2 mg/dL (8.7-10.4)
[2024-04-28 06:19] LABS: Glucose 102 mg/dL (74-106)
[2024-04-28 06:20] LABS: BUN/Creatinine Ratio 8.8 (10.0-20.0); Blood Urea Nitrogen 13 mg/dL (9-23)
[2024-04-28] MEDS ORDERED: CLIN1CAP70 PO (13:32)
[2024-04-28] MEDS ORDERED: SILV1CRE82 TOP (13:32)
== END 2024-04-28 17:52 | disposition home health service (06) | DRG 844 ==
LOC: EDUNIT# 14:17 → EDBD 14:17 → ER 14:17 → TELE 19:20 → TELE-EAST 04-24 15:33 → EAST 04-27 01:32
PROVIDERS: ADMIT Internal Medicine; ATTEND Emergency Medicine
PROC: 05HA33Z Insertion of Infusion Device into Left Brachial Vein, Percutaneous Approach (ICD-10-PCS; principal; 2024-04-25)
PROC: B54NZZA Ultrasonography of Left Upper Extremity Veins, Guidance (ICD-10-PCS; 2024-04-25)
DX: T21.22XA Burn of second degree of abdominal wall, initial encounter (principal); N17.0 Acute kidney failure with tubular necrosis; G93.41 Metabolic encephalopathy; M62.82 Rhabdomyolysis; E11.22 Type 2 diabetes mellitus with diabetic chronic kidney disease; T67.5XXA Heat exhaustion, unspecified, initial encounter; T22.211A Burn of second degree of right forearm, initial encounter; T31.0 Burns involving less than 10% of body surface; T24.111A Burn of first degree of right thigh, initial encounter; F03.90 Unspecified dementia, unspecified severity, without behavioral disturbance, psychotic disturbance, mood disturbance, and anxiety; J44.9 Chronic obstructive pulmonary disease, unspecified; X08.8XXA Exposure to other specified smoke, fire and flames, initial encounter; I12.9 Hypertensive chronic kidney disease with stage 1 through stage 4 chronic kidney disease, or unspecified chronic kidney disease; N18.2 Chronic kidney disease, stage 2 (mild); E66.01 Morbid (severe) obesity due to excess calories; E78.5 Hyperlipidemia, unspecified; Z88.0 Allergy status to penicillin; Z79.899 Other long term (current) drug therapy; Z79.82 Long term (current) use of aspirin; Y93.89 Activity, other specified; Y92.89 Other specified places as the place of occurrence of the external cause; Y99.8 Other external cause status; Z68.41 Body mass index [BMI] 40.0-44.9, adult; X30.XXXA Exposure to excessive natural heat, initial encounter
CPT/HCPCS: 36415; 70450; 71045; 73090; 73130; 73590; 80048; 80053; 81001; 82550; 82553; 82570; 82962; 83735; 83880; 84100; 84300; 84484; 85025; 87040; 87081; 87086; 90715; 93005; 93306; 97110; 97116; 97530; 99291; G0378; J1815; J2405; J2470; J3490

== ENCOUNTER 2024-07-14 09:52 | Inpatient (IN) | payer MEDICAID ==
[~2024-07-14] VITALS: Ht 188 cm; Wt 106.8 kg
[~2024-07-14 09:52] MED LIST changes: +ARIP20TA4 PO; -ASPI-325 PO; +ASPI-543 PO; +ATEN50TA PO; +BUPR-346 PO; +CLIN1CAP70 PO; +DONE1TAB88 PO; +ECON1CRE6 TOP; +FURO20TA3 PO; +HYDR-4798 PO; +HYDR25TA88 PO; -METF-869 PO; +METF-929 PO; +POLYPOW59 PO; +QUET100T47 PO; +SEMA1INJ2 SC; +SILV1CRE82 TOP; +TRAZ-228 PO
[2024-07-14 10:46] LABS: Basophils # (auto) 0 10 ^3/uL (0-0.2); Basophils % (auto) 0.9 % (0.0-2.0); Eosinophils # (auto) 0.1 10 ^3/uL (0-0.8); Eosinophils % (auto) 1.9 % (0.0-7.0); Hematocrit 36.3 % (41.0-53.0); Hemoglobin 12.1 g/dL (13.5-17.5); Lymphocytes # (auto) 2.1 10 ^3/uL (0.4-5.4); Lymphocytes % (auto) 47.3 % (10.0-50.0); Mean Corpuscular Hgb Conc. 33.2 g/dL (32.0-36.0); Mean Corpuscular Volume 93.2 fL (80.0-100.0); Monocytes # (auto) 0.4 10 ^3/uL (0-1.3); Monocytes % (auto) 9.7 % (0.0-12.0); Neutrophils # (auto) 1.8 10 ^3/uL (1.6-8.6); Neutrophils % (auto) 40.2 % (37.0-80.0); Nucleated Red Blood Cells % 0.1 %; Platelet Count (auto) 295 10^3/uL (140-450); Red Blood Cells 3.89 10^6/uL (4.5-5.90); Red Cell Distribution Width 15.6 % (11.8-14.3); White Blood Cell 4.5 10^3/uL (4.4-10.8)
[2024-07-14] MEDS: SODIUM CHLORIDE 0.9% 1,000 ML IV ONE (10:52)
[2024-07-14 10:59] LABS: Alanine Aminotransferase 12 U/L (7-40); Albumin 4.3 g/dL (3.2-4.8); Alkaline Phosphatase 113 U/L (46-116); Anion Gap 7 (5-15); Aspartate Aminotransferase 12 U/L (13-40); BUN/Creatinine Ratio 9.1 (10.0-20.0); Bilirubin, Total 0.5 mg/dL (0.2-1.0); Blood Urea Nitrogen 15 mg/dL (9-23); Calcium 9.5 mg/dL (8.7-10.4); Carbon Dioxide 29 mmol/L (20-31); Chloride 109 mmol/L (98-107); Glucose 96 mg/dL (74-106); Lipase 26 U/L (12-53); Potassium 3.3 mmol/L (3.5-5.1); Sodium 145 mmol/L (136-145)
[2024-07-14 11:00] LABS: Total Protein 6.7 g/dL (5.7-8.2)
[2024-07-14] MEDS ORDERED: NITROGLYCERIN 0.4 MG SL TAB SL PRN (16:00)
[2024-07-14] MEDS: SODIUM CHLORIDE 0.9% 1,000 ML IV SCH (16:00)
[2024-07-14] MEDS ORDERED: DEXTROSE (50%) 50ML SYRG IV PRN (16:00)
[2024-07-14 17:04] LABS: Magnesium 1.7 mg/dL (1.6-2.6)
[2024-07-14] MEDS: ENOXAPARIN SOD 40 MG/0.4 ML SYRINGE SC SCH (17:14)
[2024-07-14] MEDS: POTASSIUM CHL 20MEQ/100ML 100 ML IV SCH (17:14)
[2024-07-14] MEDS: InsuLIN REG 1unit/0.01ml Soln (100units/ml) SC SCH (18:00)
[2024-07-14] MEDS: ACCU-CHEK COMFORT CURVE STRIP VI SCH (18:29)
[2024-07-14 21:02] LABS: Urine Bacteria FEW /hpf (None Seen); Urine Blood Negative /uL (Negative); Urine Clarity Clear (Clear); Urine Color Yellow (Yellow); Urine Mucus FEW (None Seen); Urine Protein, UAD 1+ (Negative); Urine Specific Gravity 1.032 (1.001-1.035); Urine Sperm PRESENT /hpf (None Seen); Urine Urobilinogen 2 mg/dL (Negative); Urine WBC 3 /hpf (0 - 3)
[2024-07-14] MEDS: hydrALAZINE HCL 20 MG/ML VL IV PRN (21:20)
[2024-07-14] MEDS: hydrALAZINE HCL 25 MG TAB PO SCH (21:43)
[2024-07-14] MEDS: FAMOTIDINE 20 MG TAB PO SCH (21:55)
[2024-07-14] MEDS: ATORVASTATIN 20 MG TAB PO SCH (21:55)
[2024-07-14] MEDS ORDERED: LORazepam 2MG/ML-1ML VIAL IV PRN (22:00)
[2024-07-14 23:12] VITALS: BP 150/97; PULSE 64; RESP 18; TEMP 98.5; O2SAT 96
[2024-07-15] VITALS (8 sets, daily range): BP systolic 146–168; BP diastolic 80–106; PULSE 71–96; RESP 17–20; TEMP 98–98.3; O2SAT 95–98
[2024-07-15] MEDS ORDERED: ATORVASTATIN 20 MG TAB PO SCH (10:00)
[2024-07-15] MEDS: ASPirin-EC 81 mg tab PO SCH (10:07)
[2024-07-15] MEDS: amLODIPine BESYLATE 5 MG TAB PO SCH (10:08)
[2024-07-15] MEDS: FINASTERIDE 5 MG TAB PO SCH (10:08)
[2024-07-15 12:24] LABS: Basophils # (auto) 0 10 ^3/uL (0-0.2); Basophils % (auto) 1.2 % (0.0-2.0); Eosinophils # (auto) 0.1 10 ^3/uL (0-0.8); Eosinophils % (auto) 1.8 % (0.0-7.0); Hematocrit 35.9 % (41.0-53.0); Hemoglobin 12.1 g/dL (13.5-17.5); Lymphocytes % (auto) 24.2 % (10.0-50.0); Mean Corpuscular Hemoglobin 31.4 pg (28.0-32.0); Mean Corpuscular Hgb Conc. 33.7 g/dL (32.0-36.0); Mean Corpuscular Volume 93.2 fL (80.0-100.0); Monocytes # (auto) 0.4 10 ^3/uL (0-1.3); Monocytes % (auto) 10.4 % (0.0-12.0); Neutrophils # (auto) 2.7 10 ^3/uL (1.6-8.6); Neutrophils % (auto) 62.4 % (37.0-80.0); Nucleated Red Blood Cells % 0.1 %; Platelet Count (auto) 282 10^3/uL (140-450); Red Blood Cells 3.85 10^6/uL (4.5-5.90); Red Cell Distribution Width 15.6 % (11.8-14.3); White Blood Cell 4.3 10^3/uL (4.4-10.8)
[2024-07-15 12:44] LABS: Alanine Aminotransferase 14 U/L (7-40); Alkaline Phosphatase 115 U/L (46-116); Anion Gap 11 (5-15); Aspartate Aminotransferase 15 U/L (13-40); BUN/Creatinine Ratio 8.4 (10.0-20.0); Bilirubin, Total 0.6 mg/dL (0.2-1.0); Blood Urea Nitrogen 11 mg/dL (9-23); Calcium 9.6 mg/dL (8.7-10.4); Carbon Dioxide 24 mmol/L (20-31); Chloride 110 mmol/L (98-107); Glucose 105 mg/dL (74-106); Potassium 3.7 mmol/L (3.5-5.1); Sodium 145 mmol/L (136-145); Total Protein 6.4 g/dL (5.7-8.2)
[2024-07-16 01:00] VITALS: BP 152/114; PULSE 83; RESP 20; TEMP 98.4; O2SAT 97
[2024-07-16 05:00] VITALS: BP 157/86; PULSE 96; RESP 20; TEMP 98.4; O2SAT 91
[2024-07-16 06:09] LABS: Chloride 107 mmol/L (98-107); Potassium 3.3 mmol/L (3.5-5.1); Sodium 142 mmol/L (136-145)
[2024-07-16 06:10] LABS: Anion Gap 12 (5-15); Basophils # (auto) 0 10 ^3/uL (0-0.2); Basophils % (auto) 0.7 % (0.0-2.0); Carbon Dioxide 23 mmol/L (20-31); Eosinophils # (auto) 0 10 ^3/uL (0-0.8); Eosinophils % (auto) 0.7 % (0.0-7.0); Hematocrit 38.1 % (41.0-53.0); Lymphocytes # (auto) 0.9 10 ^3/uL (0.4-5.4); Lymphocytes % (auto) 16.4 % (10.0-50.0); Mean Corpuscular Hemoglobin 31.7 pg (28.0-32.0); Mean Corpuscular Hgb Conc. 34.2 g/dL (32.0-36.0); Mean Corpuscular Volume 92.7 fL (80.0-100.0); Monocytes # (auto) 0.5 10 ^3/uL (0-1.3); Monocytes % (auto) 9.3 % (0.0-12.0); Neutrophils % (auto) 72.9 % (37.0-80.0); Nucleated Red Blood Cells % 0.1 %; Platelet Count (auto) 298 10^3/uL (140-450); Red Blood Cells 4.11 10^6/uL (4.5-5.90); Red Cell Distribution Width 15.7 % (11.8-14.3); White Blood Cell 5.5 10^3/uL (4.4-10.8)
[2024-07-16 06:11] LABS: Calcium 9.7 mg/dL (8.7-10.4)
[2024-07-16 06:16] LABS: BUN/Creatinine Ratio 6.6 (10.0-20.0); Blood Urea Nitrogen 8 mg/dL (9-23); Glucose 103 mg/dL (74-106)
[2024-07-16] MEDS: POTASSIUM CHL 20MEQ/100ML 100 ML IV SCH (07:54)
[2024-07-16 08:00] VITALS: PULSE 88
[2024-07-16] MEDS: hydrALAZINE HCL 25 MG TAB PO SCH (08:15)
[2024-07-16 08:29] VITALS: BP 157/96; PULSE 80; RESP 19; TEMP 98.4; O2SAT 97
[2024-07-16 12:13] LABS: Free T4 (Free Thyroxine) 1.11 ng/dL (0.89-1.76)
[2024-07-16 12:14] LABS: Folate (Folic Acid) 9.08 ng/mL (>5.38)
[2024-07-16 12:58] VITALS: BP 155/90; PULSE 91; RESP 19; TEMP 98.4; O2SAT 97
[2024-07-16] MEDS ORDERED: HYDR25TA87 PO (14:58)
[2024-07-16] MEDS ORDERED: DOXY-111 PO (15:02)
[2024-07-16] MEDS ORDERED: METR-344 PO (15:02)
[2024-07-16] MEDS: POTASSIUM CHL 20 Meq TABLET PO ONE (15:25)
== END 2024-07-16 16:23 | disposition home or self-care (01) | DRG 469 ==
LOC: EDBD 09:52 → ER 09:52 → TELE 16:09 → TELE-WESTW 22:55
PROVIDERS: ADMIT Internal Medicine; ATTEND Internal Medicine
DX: N17.9 Acute kidney failure, unspecified (principal); G93.41 Metabolic encephalopathy; E11.22 Type 2 diabetes mellitus with diabetic chronic kidney disease; G45.9 Transient cerebral ischemic attack, unspecified; F03.90 Unspecified dementia, unspecified severity, without behavioral disturbance, psychotic disturbance, mood disturbance, and anxiety; G40.209 Localization-related (focal) (partial) symptomatic epilepsy and epileptic syndromes with complex partial seizures, not intractable, without status epilepticus; I16.1 Hypertensive emergency; I12.9 Hypertensive chronic kidney disease with stage 1 through stage 4 chronic kidney disease, or unspecified chronic kidney disease; E78.5 Hyperlipidemia, unspecified; J44.9 Chronic obstructive pulmonary disease, unspecified; N18.2 Chronic kidney disease, stage 2 (mild); E87.6 Hypokalemia; Z88.0 Allergy status to penicillin; Z82.49 Family history of ischemic heart disease and other diseases of the circulatory system; Z82.5 Family history of asthma and other chronic lower respiratory diseases; Z96.659 Presence of unspecified artificial knee joint; Z79.4 Long term (current) use of insulin; Z79.899 Other long term (current) drug therapy; Z79.84 Long term (current) use of oral hypoglycemic drugs; Z79.82 Long term (current) use of aspirin; Z82.61 Family history of arthritis
CPT/HCPCS: 36415; 70450; 70551; 71045; 80048; 80053; 81001; 82140; 82607; 82746; 82962; 83036; 83605; 83690; 83735; 84100; 84439; 84443; 84484; 85025; 93005; 93886; 95819; 96365; 97163; 99291; G0378; J3480